=== PATIENT | female | born 1955 | race Caucasian/White ===

== ENCOUNTER 2018-11-27 08:19 | Inpatient (IN) | payer BC ==
[~2018-11-27 08:19] MED LIST: Acetaminophen 325 MG Tab PO SCH; Bisacodyl 5 MG Tab PO PRN; Cyclobenzaprine 10 MG Tab PO PRN; Ketorolac 15 MG/ML SDV IVPUSH PRN; Lactated Ringers 1,000 ML IV SCH; Lidocaine 1%/Sod Bicarbonate in NS 8.4% 1 ML Syringe IDERM PRN; Magnesium Hydroxide 400 MG/5 ML Susp 30 ML Cup PO PRN; Midazolam 1 MG/ML 2 ML SDV ONE; Morphine 2 MG/ML Syringe IVPUSH PRN; Morphine 8 MG, EPINEPHrine 0.3 MG, Cefuroxime 750 MG, Ketorolac 30 MG, Sodium Chloride ... ONE; Naloxone 0.4 MG/ML SDV IVPUSH PRN; Ondansetron 4 MG/2 ML SDV ONE; Pregabalin 25 MG Cap PO SCH; Propofol 200 MG/20 ML SDV ONE; Sennosides 8.6 MG Tab PO PRN; Sodium Chloride 0.9% 10 ML Syringe FLUSH PRN; ceFAZolin 1 GM Vial ONE; fentaNYL 100 MCG/2 ML SDV ONE; oxyCODONE ER 10 MG TAB.ER PO SCH
--- NOTE | 2018-11-27 10:05 | PCM.PREANE ---
Preanesthetic Assessment - Anesthesia/Transfusion/Family Hx Anesthesia History: Prior Anesthesia Without Reaction Family History of Anesthesia Reaction: No Transfusion History: Prior Transfusion Without Reaction - Review of Systems General: No Symptoms, Other (BMI) Pulmonary: No Symptoms Cardiovascular: Other (HTN, EKG SR) Gastrointestinal: No Symptoms Neurological: No Symptoms Other: Reports: None - Physical Assessment NPO Status Date: 11/26/18 NPO Status Time: 19:00 Pulse: 65 O2 Sat by Pulse Oximetry: 96 Respiratory Rate: 16 Blood Pressure: 150/77 Vital Signs: Last Vital Signs Temp 36.6 C 11/27/18 09:05 Pulse 65 11/27/18 09:05 Resp 16 11/27/18 09:05 BP 150/77 H 11/27/18 09:05 Pulse Ox 96 11/27/18 09:05 Height: 1.63 m Weight: 111.13 kg ASA Class: 2 Mental Status: Alert & Oriented x3 Airway Class: Mallampati = 2 Dentition: Reports: Normal Dentition Thyro-Mental Finger Breadths: 3 Mouth Opening Finger Breadths: 3 ROM/Head Extension: Full Lungs: Clear to Auscultation, Normal Respiratory Effort Cardiovascular: Regular Rate, Regular Rhythm - Lab Values: Laboratory Last Values MRSA (PCR) Negative 11/08/18 14:25 - Allergies Allergies/Adverse Reactions: Allergies Allergy/AdvReac Type Severity Reaction Status Date / Time aspirin AdvReac Upset Verified 11/24/18 13:23 Stomach - Blood Blood Available: No Product(s) Available: None - Anesthesia Plan Beta Javier: Metoprolol Med Last Dose Date: 11/27/18 Med Last Dose Time: 06:00 - Acknowledgements Anesthesia Type Planned: Spinal Pt an Appropriate Candidate for the Planned Anesthesia: Yes Alternatives and Risks of Anesthesia Discussed w Pt/Guardian: Yes Pt/Guardian Understands and Agrees with Anesthesia Plan: Yes PreAnesthesia Questionnaire HEENT History: Reports: Cataract, Impaired Vision, Other (See Below) Other HEENT History: wears eyeglasses, states has top/botom dentures. Cardiovascular History: Reports: Hypertension Respiratory History: Reports: None Gastrointestinal History: Reports: None, Other (See Below) Other Gastrointestinal History: c/o "I belch alot." Genitourinary History: Reports: UTI, Recurrent HAND FLESHER History: Reports: None Musculoskeletal History: Reports: Arthritis, Back Pain, Chronic, Fracture, RA Other Musculoskeletal History: Arthritis Neurological History: Reports: None Psychiatric History: Reports: None Endocrine/Metabolic History: Reports: None Hematologic History: Reports: None Immunologic History: Reports: None Oncologic (Cancer) History: Reports: None Dermatologic History: Reports: None - Infectious Disease History Infectious Disease History: Reports: Chicken Pox - Past Surgical History Head Surgeries/Procedures: Reports: None HEENT Surgical History: Reports: Cataract Surgery Cardiovascular Surgical History: Reports: None Respiratory Surgical History: Reports: None GI Surgical History: Reports: Cholecystectomy Female Surgical History: Reports: None Other Female Surgeries/Procedures: Partial Hysterectomy Male Surgical History: Reports: None Endocrine Surgical History: Reports: None Neurological Surgical History: Reports: Lumbar Spine Oncologic Surgical History: Reports: None Dermatological Surgical History: Reports: None - SUBSTANCE USE Smoking Status *Q: Never Smoker Second Hand Smoke Exposure: No Recreational Drug Use History: No - HOME MEDS Home Medications: Home Meds Acetaminophen [Tylenol Extra Strength] 500 mg PO Q4H PRN 11/24/18 [History] Ca Carbonate/Vitamin D3/Vit K [Calcium + D Soft Chewable Tab] 2.5 tab PO DAILY 11/24/18 [History] Cholecalciferol (Vitamin D3) [Vitamin D3] 5,000 unit PO DAILY 11/24/18 [History] Lisinopril 10 mg PO DAILY 11/24/18 [History] Meloxicam 15 mg PO DAILY PRN 11/24/18 [History] Metoprolol Succinate 25 mg PO DAILY 11/24/18 [History] Spironolactone 50 mg PO DAILY 11/24/18 [History] - CURRENT (IN HOUSE) MEDS Current Meds: Current Medications Acetaminophen (Tylenol) 975 mg PO ONETIME [facility] Stop: 11/27/18 18:00 Last Admin: 11/27/18 09:25 Dose: 975 mg Aspirin (Ecotrin) 325 mg PO BID [facility] Bisacodyl (Dulcolax) 5 mg PO DAILY PRN PRN Reason: Constipation Cyclobenzaprine HCl (Flexeril) 10 mg PO TID PRN PRN Reason: Spasms Docusate Sodium (Colace) 100 mg PO BID [facility] Lactated Ringer's (Ringers, Lactated) 1,000 mls @ 125 mls/hr IV ASDIRECTED [facility] Stop: 11/27/18 23:00 Last Admin: 11/27/18 09:20 Dose: 125 mls/hr Cefazolin Sodium/Dextrose 2 gm (/ Premix) 50 mls @ 100 mls/hr IV Q8H [facility] Stop: 11/27/18 23:14 Ketorolac Tromethamine (Toradol) 15 mg IVPUSH Q6H PRN PRN Reason: Pain Lidocaine/Sodium Bicarbonate (Buffered Lidocaine 1% In Ns 8.4%) 0.25 ml IDERM ONETIME PRN PRN Reason: Prior to IV Start Stop: 11/27/18 18:00 Magnesium Hydroxide (Milk Of Magnesia) 30 ml PO BID PRN PRN Reason: Constipation Morphine Sulfate (Morphine) 2 mg IVPUSH Q2H PRN PRN Reason: Breakthrough Pain Naloxone HCl (Narcan) 0.1 mg IVPUSH Q5M PRN PRN Reason: Oversedation Ondansetron HCl (Zofran) 4 mg IVPUSH Q6H PRN PRN Reason: Nausea/Vomiting Oxycodone HCl (Oxycontin) 10 mg PO ONETIME [facility] Stop: 11/27/18 18:00 Last Admin: 11/27/18 09:26 Dose: 10 mg Oxycodone/Acetaminophen (Percocet 325-5 Mg) 1 - 2 tab PO Q4H PRN PRN Reason: Pain Pregabalin (Lyrica) 50 mg PO ONETIME [facility] Stop: 11/27/18 18:00 Last Admin: 11/27/18 09:25 Dose: 50 mg Senna (Senna) 8.6 mg PO BID PRN PRN Reason: Constipation Sodium Chloride (Saline Flush) 10 ml FLUSH ASDIRECTED PRN PRN Reason: Keep Vein Open Stop: 11/27/18 18:00 Discontinued Medications Cefazolin Sodium (Ancef) Confirm Administered Dose 2 gm .ROUTE .STK-MED ONE Stop: 11/27/18 08:19 Morphine Sulfate 8 mg/Epinephrine HCl 0.3 mg/Cefuroxime Sodium 750 mg/Ketorolac Tromethamine 30 mg/Sodium Chloride 27.9 ml 0 mg .XX ONETIME ONE Stop: 11/27/18 07:31 Fentanyl (Sublimaze) Confirm Administered Dose 100 mcg .ROUTE .STK-MED ONE Stop: 11/27/18 08:19 Midazolam HCl (Versed 1 Mg/Ml) Confirm Administered Dose 2 mg .ROUTE .STK-MED ONE Stop: 11/27/18 08:19 Ondansetron HCl (Zofran) Confirm Administered Dose 4 mg .ROUTE .STK-MED ONE Stop: 11/27/18 08:19 Propofol (Diprivan 20 Ml) Confirm Administered Dose 600 mg .ROUTE .STK-MED ONE Stop: 11/27/18 08:19
[2018-11-27] MEDS ORDERED: Ropivacaine 0.5% 5 MG/ML 30 ML SDV ONE (10:11)
[2018-11-27] MEDS ORDERED: EPINEPHrine 1 MG/ML SDV ONE (10:11)
[2018-11-27] MEDS ORDERED: Bupivacaine 0.25% 30 ML SDV ONE (10:58)
[2018-11-27] MEDS ORDERED: ceFAZolin 1 GM Vial ONE (10:58)
[2018-11-27] MEDS ORDERED: Iodine/Sodium Iodide 2% Tincture 30 ML Bottle ONE (10:58)
--- NOTE | 2018-11-27 11:14 | PCM.CONS ---
H&P History of Present Illness - General Date of Service: 11/27/18 Admit Problem/Dx: Admission Diagnosis/Problem Admission Diagnosis/Problem Osteoarthritis of knee Source of Information: Patient, Old Records, Provider, RN, RN Notes Reviewed History Limitations: Reports: No Limitations - History of Present Illness Initial Comments - Free Text/Narative: Iliana Azar is a 63 yo female patient of Dr. Spicer who is post-operative day 0 of right TKA. Hospital medicine was consulted for post-operative medical care of the below listed chronic conditions. At this time she is resting comfortably in bed. Pain is controlled. She denies any chest pain, shortness of breath, palpitations, or vomiting. She is slightly nauseated and will be medicated for this. She carries a history of: HTN, RA, Urolithiasis, Osteopenia, recurrent UTIs, chronic back pain. She was never a smoker. She is a full code. Her primary care provider is Dr. Olivia. Right Knee Pain Score (Numeric/FACES): 0 - Related Data Allergies/Adverse Reactions: Allergies Allergy/AdvReac Type Severity Reaction Status Date / Time aspirin AdvReac Upset Verified 11/24/18 13:23 Stomach Home Medications: Home Meds Acetaminophen [Tylenol Extra Strength] 500 mg PO Q4H PRN 11/24/18 [History] Ca Carbonate/Vitamin D3/Vit K [Calcium + D Soft Chewable Tab] 2.5 tab PO DAILY 11/24/18 [History] Cholecalciferol (Vitamin D3) [Vitamin D3] 5,000 unit PO DAILY 11/24/18 [History] Lisinopril 10 mg PO DAILY 11/24/18 [History] Meloxicam 15 mg PO DAILY PRN 11/24/18 [History] Metoprolol Succinate 25 mg PO DAILY 11/24/18 [History] Spironolactone 50 mg PO DAILY 11/24/18 [History] Past Medical History HEENT History: Reports: Cataract, Impaired Vision, Other (See Below) Other HEENT History: wears eyeglasses, states has top/botom dentures. Cardiovascular History: Reports: Hypertension Respiratory History: Reports: None Gastrointestinal History: Reports: None, Other (See Below) Other Gastrointestinal History: c/o "I belch alot." Genitourinary History: Reports: UTI, Recurrent DIRECTOR LOAN History: Reports: None Musculoskeletal History: Reports: Arthritis, Back Pain, Chronic, Fracture, RA Other Musculoskeletal History: Arthritis Neurological History: Reports: None Psychiatric History: Reports: None Endocrine/Metabolic History: Reports: None Hematologic History: Reports: None Immunologic History: Reports: None Oncologic (Cancer) History: Reports: None Dermatologic History: Reports: None - Infectious Disease History Infectious Disease History: Reports: Chicken Pox - Past Surgical History Head Surgeries/Procedures: Reports: None HEENT Surgical History: Reports: Cataract Surgery Cardiovascular Surgical History: Reports: None Respiratory Surgical History: Reports: None GI Surgical History: Reports: Cholecystectomy Female Surgical History: Reports: None Other Female Surgeries/Procedures: Partial Hysterectomy Male Surgical History: Reports: None Endocrine Surgical History: Reports: None Neurological Surgical History: Reports: Lumbar Spine Oncologic Surgical History: Reports: None Dermatological Surgical History: Reports: None Social & Family History - Family History Family Medical History: Noncontributory - Tobacco Use Smoking Status *Q: Never Smoker Second Hand Smoke Exposure: No - Caffeine Use Caffeine Use: Reports: None - Recreational Drug Use Recreational Drug Use: No H&P Review of Systems - Review of Systems: Review Of Systems: See Below General: Reports: No Symptoms. Denies: Fever, Chills HEENT: Reports: No Symptoms. Denies: Headaches, Sore Throat Pulmonary: Reports: No Symptoms. Denies: Shortness of Breath, Wheezing, Pleuritic Chest Pain, Cough, Sputum Cardiovascular: Reports: No Symptoms. Denies: Chest Pain, Palpitations, Edema Gastrointestinal: Reports: Nausea. Denies: Abdominal Pain, Constipation, Diarrhea, Vomiting Genitourinary: Reports: No Symptoms. Denies: Pain Musculoskeletal: Reports: Leg Pain Skin: Reports: No Symptoms. Denies: Cyanosis Psychiatric: Reports: No Symptoms. Denies: Confusion Neurological: Reports: No Symptoms Hematologic/Lymphatic: Reports: No Symptoms Immunologic: Reports: No Symptoms Exam - Exam Exam: See Below - Vital Signs Vital Signs: Last Vital Signs Temp 97.9 F 11/27/18 09:05 Pulse 65 11/27/18 10:05 Resp 16 11/27/18 10:05 BP 150/77 H 11/27/18 10:05 Pulse Ox 96 11/27/18 10:05 Weight: 245 lb - Exam Quality Assessment: DVT Prophylaxis General: Alert, Oriented, Cooperative. No: Mild Distress HEENT: Conjunctiva Clear, EACs Clear, EOMI, Hearing Intact, Mucosa Moist & [place] , Normal Nasal Septum, Posterior Pharynx Clear, PERRLA Neck: Supple, Trachea Midline Lungs: Clear to Auscultation, Normal Respiratory Effort Cardiovascular: Regular Rate, Regular Rhythm GI/Abdominal Exam: Normal Bowel Sounds, Soft, Non-Tender, No Organomegaly, No Distention (Female) Exam: Deferred Rectal (Female) Exam: Deferred Back Exam: Normal Inspection, Full Range of Motion Extremities: No Pedal Edema, Normal Capillary Refill, Leg Pain, Limited Range of Motion, Other (Bandage in place on right leg. Bandage is dry and intact. Cooling pack in place. ) Peripheral Pulses: 2+: Radial (L), Radial (R), Dorsalis Pedis (L), Dorsalis Pedis (R) Skin: Warm, Dry, Intact Neurological: Cranial Nerves Intact (grossly ) Neuro Extensive - Mental Status: Alert, Oriented x3, Normal Mood/Affect Consult PN Assessment/Plan POD#: 0 Procedures: Procedures ASSAY OF TROPONIN QUANT (12/20/15) ASSAY THYROID STIM HORMONE (03/12/17) BL SMEAR W/DIFF WBC COUNT (04/24/18) C-REACTIVE PROTEIN (04/24/18) CHEST X-RAY 1 VIEW FRONTAL (12/20/15) COMPLETE CBC AUTOMATED (04/24/18) COMPLETE CBC W/AUTO DIFF WBC (03/12/17) COMPREHEN METABOLIC PANEL (04/24/18) CT ABD & PELV W/CONTRAST (04/24/18) CT ANGIOGRAPHY CHEST (03/26/15) ELECTROCARDIOGRAM TRACING (12/20/15) EMERGENCY DEPT VISIT (04/24/18) EMERGENCY DEPT VISIT (12/20/15) EMERGENCY DEPT VISIT (03/24/15) FIBRIN DEGRADATION QUANT (03/24/15) HYDRATE IV INFUSION ADD-ON (04/24/18) LIPID PANEL (03/12/17) MANUAL THERAPY 1/> REGIONS (06/03/14) METABOLIC PANEL TOTAL CA (06/02/17) PT EVALUATION (05/16/14) ROUTINE VENIPUNCTURE (04/24/18) THER/PROPH/DIAG INJ IV PUSH (04/24/18) THER/PROPH/DIAG INJ SC/IM (03/24/15) THERAPEUTIC EXERCISES (06/03/14) ULTRASOUND BREAST LIMITED (04/04/17) ULTRASOUND THERAPY (05/16/14) URINALYSIS AUTO W/SCOPE (04/24/18) URINE BACTERIA CULTURE (04/24/18) URINE CULTURE/COLONY COUNT (04/24/18) (1) S/P total knee arthroplasty SNOMED Code(s): 5579840010080, 799182450, 2991395379622 Code(s): Z96.659 - PRESENCE OF UNSPECIFIED ARTIFICIAL KNEE JOINT Priority: High Current Visit: Yes Qualifiers: Laterality: right Qualified Code(s): Z96.651 - Presence of right artificial knee joint (2) Osteoarthritis SNOMED Code(s): 203182389 Code(s): M19.90 - UNSPECIFIED OSTEOARTHRITIS, UNSPECIFIED SITE Priority: High Current Visit: Yes Qualifiers: Osteoarthritis location: knee Osteoarthritis type: primary Laterality: right Qualified Code(s): M17.11 - Unilateral primary osteoarthritis, right knee (3) HTN (hypertension) SNOMED Code(s): 16296105 Code(s): I10 - ESSENTIAL (PRIMARY) HYPERTENSION Priority: Low Current Visit: No Qualifiers: Hypertension type: unspecified Qualified Code(s): I10 - Essential (primary ) hypertension (4) Rheumatoid arthritis SNOMED Code(s): 96369781 Code(s): M06.9 - RHEUMATOID ARTHRITIS, UNSPECIFIED Priority: Low Current Visit: No Qualifiers: Rheumatoid arthritis location: unspecified site Rheumatoid factor presence : unspecified presence Qualified Code(s): M06.9 - Rheumatoid arthritis, unspecified (5) Urolithiasis SNOMED Code(s): 25594343, 469339618 Code(s): N20.9 - URINARY CALCULUS, UNSPECIFIED Priority: Low Current Visit: No Qualifiers: Urinary calculus location: other lower urinary tract location Qualified Code(s): N21.8 - Other lower urinary tract calculus (6) Osteopenia SNOMED Code(s): 824671287 Code(s): M85.80 - OTH DISRD OF BONE DENSITY AND STRUCTURE, UNSPECIFIED SITE Priority: Low Current Visit: No Qualifiers: Osteopenia location: unspecified Qualified Code(s): M85.80 - Other specified disorders of bone density and structure, unspecified site (7) Recurrent UTI SNOMED Code(s): 979388233 Code(s): N39.0 - URINARY TRACT INFECTION, SITE NOT SPECIFIED Priority: Low Current Visit: No (8) Chronic back pain SNOMED Code(s): 504361188 Code(s): M54.9 - DORSALGIA, UNSPECIFIED; G89.29 - OTHER CHRONIC PAIN Priority: Low Current Visit: No Qualifiers: Back pain location: back pain in unspecified location Back pain laterality : unspecified Qualified Code(s): M54.9 - Dorsalgia, unspecified; G89.29 - Other chronic pain Problem List Initiated/Reviewed/Updated: Yes Plan: I/P: Acute: S/P right total knee arthroplasty - post-operative day 0 -DVT prophylaxis and pain management per primary care team -PT/OT -IS/RT -Monitor oxygen saturation -Titrate oxygen as needed -Home medications reviewed -Vital signs stable -Monitor labs -Pre-operative Hgb was 12.8 -Pre-operative GFR was 75 Osteoarthritis of right knee -Pain management per primary care team Chronic: HTN RA Urolithiasis Osteopenia recurrent UTIs chronic back pain Plan: CM for discharge planning GI prophylaxis Home medications as indicated Other orders as listed above Routine AM labs She is a full code. Her PCP is Dr. Olivia. Thank you for allowing us to participate in the care of this patient!! Requesting Provider: Dr. Spicer Date Consult Requested: 11/27/18 Patient History Reviewed: Yes Admission H&P Reviewed: Yes Time Spent (in minutes): 35
[2018-11-27] MEDS ORDERED: ePHEDrine/Normal Saline 25 MG/5 ML Syringe ONE (12:26)
[2018-11-27] MEDS ORDERED: Propofol 200 MG/20 ML SDV ONE (12:49)
[2018-11-27] MEDS: Vancomycin 1 GM SDV ONE ×2 (13:03→13:05)
[2018-11-27] MEDS ORDERED: Lactated Ringers 1,000 ML ONE (13:39)
[2018-11-27] MEDS ORDERED: fentaNYL 100 MCG/2 ML SDV IVPUSH PRN (14:06)
--- NOTE | 2018-11-27 14:06 | PCM.POSTAN ---
POST ANESTHESIA ASSESSMENT - MENTAL STATUS Mental Status: Alert, Oriented - VITAL SIGNS Pulse Rate: 60 SaO2: 96 Resp Rate: 13 Blood Pressure: 123/64 Temperature: 36.8 C - RESPIRATORY Respiratory Status: Respiratory Rate WNL, Airway Patent, O2 Saturation Stable, Supplemental Oxygen - CARDIOVASCULAR CV Status: Pulse Rate WNL, Blood Pressure Stable - GASTROINTESTINAL GI Status: No Symptoms - PAIN Pain Score: 0 - POST OP HYDRATION Hydration Status: Adequate & Stable
--- NOTE | 2018-11-27 14:22 | PCM.SN ---
- Free Text/Narrative Note: Right selective femoral nerve block at the adductor canal for post-procedure pain control under US guidance requested by Dr. Spicer. Time Out: 140 Start:1410 End: 1413 Chart reviewed. Consent signed. Questions answered. Appropriate monitors applied. Time out performed. Right mid-shaft femur identified with ultrasound, scanning medially of femur, the femoral artery in the adductor canal visualized , and the femoral nerve located laterally to the artery. The skin was prepped lateral to the ultrasound probe with chlorahexadine times two. The 21ga 4 insulated block needle was inserted under direct ultrasound guidance into the adductor canal. 25mL of 0.5% ropivacaine with 1:200,000 epinephrine was injected circumferentially around the nerve with intermittent negative aspiration noted. Patient tolerated the procedure well. Sterile technique noted along with sterile gloves, mask, and sterile probe cover. See picture on progress note and vital signs on nurses notes. Block completed in PACU. Yuliet Arana CRNA
--- NOTE | 2018-11-27 15:10 | CR ---
Right knee: AP and lateral views of the right knee were obtained. Comparison: No prior exam. Knee prosthesis is seen. Components appear aligned. Soft tissue air is noted from the surgical procedure. Underlying bony structures are intact. Impression: 1. Satisfactory appearance of recently placed right knee prosthesis. Diagnostic code #2
[2018-11-27] MEDS: Ondansetron 4 MG/2 ML SDV IVPUSH PRN (15:42)
[2018-11-27] MEDS ORDERED: Scopolamine 1.5 MG Transdermal Patch TRDERM SCH (16:00)
--- NOTE | 2018-11-27 16:50 | PCM.OPNOTE ---
- General Post-Op/Procedure Note Date of Surgery/Procedure: 11/27/18 Operative Procedure(s): right total knee arthroplasty Pre Op Diagnosis: right knee osteoarthrosis Post-Op Diagnosis: Same Anesthesia Technique: Local, MAC, Spinal Primary Surgeon: Sean Spicer Anesthesia Provider: Noris Evans [place] Mixer Operator: Phyllis Casillas [employer] Mixer Operator: Opal Frye EBL in mLs: 50 Complications: None Condition: Good Free Text/Narrative:: Intake & Output 11/27/18 11/27/18 11/27/18 06:59 14:59 22:59 Intake Total 250 Balance 250 size 5/5 9mm 32x10 cemented patella
[2018-11-27] MEDS ORDERED: Haloperidol Lactate 5 MG/ML SDV IVPUSH ONE (18:00)
[2018-11-27] MEDS ORDERED: Sodium Chloride 0.9% 500 ML IV ONE (18:01)
[2018-11-27] MEDS: ceFAZolin 2 GM in Premix Bag 1 BAG IV SCH (18:19)
[2018-11-27] MEDS: Docusate Sodium 100 MG Cap PO SCH (20:01)
[2018-11-27] MEDS: Acetaminophen/oxyCODONE 325-5 MG Tab PO PRN (20:01)
[2018-11-28] MEDS: Acetaminophen/oxyCODONE 325-5 MG Tab PO PRN ×3 (01:59→20:59)
[2018-11-28] MEDS: ceFAZolin 2 GM in Premix Bag 1 BAG IV SCH ×2 (02:01→12:12)
--- NOTE | 2018-11-28 06:33 | PCM.CONSN ---
- General Info Date of Service: 11/28/18 Admission Dx/Problem (Free Text): Admission Diagnosis/Problem Admission Diagnosis/Problem Osteoarthritis of knee Functional Status: Reports: Pain Controlled, Tolerating Diet, Ambulating, Urinating, Incentive Spirometry. Denies: New Symptoms - Review of Systems General: Reports: No Symptoms. Denies: Fever, Chills HEENT: Reports: No Symptoms. Denies: Headaches, Sore Throat Pulmonary: Reports: No Symptoms. Denies: Shortness of Breath, Cough, Sputum Cardiovascular: Reports: No Symptoms. Denies: Chest Pain, Palpitations, Dyspnea on Exertion, Edema Gastrointestinal: Reports: Decreased Appetite, Nausea, Vomiting. Denies: Abdominal Pain, Constipation, Diarrhea Genitourinary: Reports: No Symptoms. Denies: Pain Musculoskeletal: Reports: Leg Pain Skin: Reports: No Symptoms. Denies: Cyanosis Neurological: Reports: No Symptoms. Denies: Confusion Psychiatric: Reports: No Symptoms - Patient Data Vitals - Most Recent: Last Vital Signs Temp 97.6 F 11/28/18 04:00 Pulse 58 L 11/28/18 04:00 Resp 20 11/28/18 04:00 BP 135/81 11/28/18 04:00 Pulse Ox 96 11/28/18 04:00 Weight - Most Recent: 251 lb I&O - Last 24 Hours: Intake & Output 11/27/18 11/27/18 11/28/18 14:59 22:59 06:59 Intake Total 250 1000 Output Total 200 Balance 250 800 Lab Results Last 24 Hours: Laboratory Results - last 24 hr 11/28/18 11/28/18 Range/Units 04:33 04:33 WBC 9.22 (3.98-10.04) K/mm3 RBC 3.88 L (3.98-5.22) M/mm3 Hgb 11.6 (11.2-15.7) gm/L Hct 35.4 (34.1-44.9) % MCV 91.2 (79.4-94.8) fl MCH 29.9 (25.6-32.2) pg MCHC 32.8 (32.2-35.5) g/dl RDW Std Deviation 42.7 (36.4-46.3) fL Plt Count 173 L (182-369) K/mm3 MPV 11.2 (9.4-12.3) fl Sodium 136 (136-145) mEq/L Potassium 4.9 (3.5-5.1) mEq/L Chloride 101 (98-107) mEq/L Carbon Dioxide 27 (21-32) mEq/L Anion Gap 12.9 (5-15) BUN 32 H (7-18) mg/dL Creatinine 0.8 (0.55-1.02) mg/dL Est Cr Clr Drug Dosing 63.77 mL/min Estimated GFR (MDRD) > 60 (>60) mL/min BUN/Creatinine Ratio 40.0 H (14-18) Glucose 111 (80-115) mg/dL Calcium 8.9 (8.5-10.1) mg/dL Total Bilirubin 1.1 H (0.2-1.0) mg/dL AST 167 H (15-37) U/L ALT 117 H (14-59) U/L Alkaline Phosphatase 128 H (46-116) U/L Total Protein 6.0 L (6.4-8.2) g/dl Albumin 3.1 L (3.4-5.0) g/dl Globulin 2.9 gm/dL Albumin/Globulin Ratio 1.1 (1-2) Med Orders - Current: Current Medications Aspirin (Ecotrin) 325 mg PO BID [facility] Bisacodyl (Dulcolax) 5 mg PO DAILY PRN PRN Reason: Constipation Calcium Carbonate (Calcium Carbonate/Vitamin D 600 Mg-200 Unit) 2 tab PO DAILY [facility] Cholecalciferol (Vitamin D3) 5,000 unit PO DAILY [facility] Cyclobenzaprine HCl (Flexeril) 10 mg PO TID PRN PRN Reason: Spasms Docusate Sodium (Colace) 100 mg PO BID [facility] Last Admin: 11/27/18 20:01 Dose: 100 mg Cefazolin Sodium/Dextrose 2 gm (/ Premix) 50 mls @ 100 mls/hr IV Q8H [facility] Stop: 11/28/18 11:29 Last Admin: 11/28/18 02:01 Dose: 100 mls/hr Ketorolac Tromethamine (Toradol) 15 mg IVPUSH Q6H PRN PRN Reason: Pain Magnesium Hydroxide (Milk Of Magnesia) 30 ml PO BID PRN PRN Reason: Constipation Metoprolol Succinate (Toprol Xl) 25 mg PO DAILY [facility] Miscellaneous Information (Remove Patch) 1 ea TRDERM Q72H [facility] Morphine Sulfate (Morphine) 2 mg IVPUSH Q2H PRN PRN Reason: Breakthrough Pain Naloxone HCl (Narcan) 0.1 mg IVPUSH Q5M PRN PRN Reason: Oversedation Ondansetron HCl (Zofran) 4 mg IVPUSH Q6H PRN PRN Reason: Nausea/Vomiting Last Admin: 11/27/18 15:42 Dose: 4 mg Oxycodone/Acetaminophen (Percocet 325-5 Mg) 1 - 2 tab PO Q4H PRN PRN Reason: Pain Last Admin: 11/28/18 06:05 Dose: 2 tab Scopolamine (Transderm-Scop) 1.5 mg TRDERM Q72H [facility] Last Admin: 11/27/18 15:42 Dose: 1.5 mg Senna (Senna) 8.6 mg PO BID PRN PRN Reason: Constipation Discontinued Medications Acetaminophen (Tylenol) 975 mg PO ONETIME [facility] Stop: 11/27/18 18:00 Last Admin: 11/27/18 09:25 Dose: 975 mg Bupivacaine HCl (Marcaine 0.25%) Confirm Administered Dose 30 ml .ROUTE .STK- MED ONE Stop: 11/27/18 10:59 Last Admin: 11/27/18 13:03 Dose: 30 ml Cefazolin Sodium (Ancef) Confirm Administered Dose 2 gm .ROUTE .STK-MED ONE Stop: 11/27/18 08:19 Last Admin: 11/27/18 13:01 Dose: 2 gm Cefazolin Sodium (Ancef) Confirm Administered Dose 2 gm .ROUTE .STK-MED ONE Stop: 11/27/18 10:59 Morphine Sulfate 8 mg/Epinephrine HCl 0.3 mg/Cefuroxime Sodium 750 mg/Ketorolac Tromethamine 30 mg/Sodium Chloride 27.9 ml 0 mg .XX ONETIME ONE Stop: 11/27/18 07:31 Last Admin: 11/27/18 13:02 Dose: 788.3 mg Ephedrine Sulfate (Ephedrine In Ns) Confirm Administered Dose 25 mg .ROUTE .STK- MED ONE Stop: 11/27/18 12:27 Epinephrine HCl (Adrenalin) Confirm Administered Dose 1 mg .ROUTE .STK-MED ONE Stop: 11/27/18 10:12 Fentanyl (Sublimaze) Confirm Administered Dose 100 mcg .ROUTE .STK-MED ONE Stop: 11/27/18 08:19 Fentanyl (Sublimaze) 50 mcg IVPUSH Q5M PRN PRN Reason: pain Stop: 11/27/18 18:00 Haloperidol Lactate (Haldol) 1 mg IVPUSH ONETIME ONE Stop: 11/27/18 18:01 Last Admin: 11/27/18 18:16 Dose: 1 mg Lactated Ringer's (Ringers, Lactated) 1,000 mls @ 125 mls/hr IV ASDIRECTED [facility] Stop: 11/27/18 23:00 Last Admin: 11/27/18 09:20 Dose: 125 mls/hr Lactated Ringer's (Ringers, Lactated) Confirm Administered Dose 1,000 mls @ as directed .ROUTE .STK-MED ONE Stop: 11/27/18 13:40 Sodium Chloride (Normal Saline) 500 mls @ 999 mls/hr IV .BOLUS ONE Stop: 11/27/18 18:31 Last Admin: 11/27/18 18:19 Dose: 999 mls/hr Iodine (Iodine 2% Mild Tincture) Confirm Administered Dose 30 ml .ROUTE .STK- MED ONE Stop: 11/27/18 10:59 Last Admin: 11/27/18 12:58 Dose: 18 ml Lidocaine/Sodium Bicarbonate (Buffered Lidocaine 1% In Ns 8.4%) 0.25 ml IDERM ONETIME PRN PRN Reason: Prior to IV Start Stop: 11/27/18 18:00 Midazolam HCl (Versed 1 Mg/Ml) Confirm Administered Dose 2 mg .ROUTE .STK-MED ONE Stop: 11/27/18 08:19 Ondansetron HCl (Zofran) Confirm Administered Dose 4 mg .ROUTE .STK-MED ONE Stop: 11/27/18 08:19 Oxycodone HCl (Oxycontin) 10 mg PO ONETIME [facility] Stop: 11/27/18 18:00 Last Admin: 11/27/18 09:26 Dose: 10 mg Pregabalin (Lyrica) 50 mg PO ONETIME [facility] Stop: 11/27/18 18:00 Last Admin: 11/27/18 09:25 Dose: 50 mg Propofol (Diprivan 20 Ml) Confirm Administered Dose 600 mg .ROUTE .STK-MED ONE Stop: 11/27/18 08:19 Propofol (Diprivan 20 Ml) Confirm Administered Dose 200 mg .ROUTE .STK-MED ONE Stop: 11/27/18 12:50 Ropivacaine (Naropin 0.5%) Confirm Administered Dose 30 ml .ROUTE .STK-MED ONE Stop: 11/27/18 10:12 Sodium Chloride (Saline Flush) 10 ml FLUSH ASDIRECTED PRN PRN Reason: Keep Vein Open Stop: 11/27/18 18:00 Tranexamic Acid (Cyklokapron) Confirm Administered Dose 1,000 mg .ROUTE .STK- MED ONE Stop: 11/27/18 10:59 Last Admin: 11/27/18 13:17 Dose: 1,000 mg Vancomycin HCl (Vancomycin) Confirm Administered Dose 1 gm .ROUTE .STK-MED ONE Stop: 11/27/18 10:59 Last Admin: 11/27/18 13:05 Dose: 1 gm - Exam Quality Assessment: DVT Prophylaxis General: Alert, Oriented, Cooperative, No Acute Distress HEENT: Pupils Equal, Pupils Reactive, EOMI, Mucous Membr. Moist/[place] Neck: Supple, Trachea Midline, No JVD Lungs: Clear to Auscultation, Normal Respiratory Effort Cardiovascular: Regular Rate, Regular Rhythm GI/Abdominal Exam: Normal Bowel Sounds, Soft, Non-Tender, No Organomegaly, No Distention (Female) Exam: Deferred Back Exam: Normal Inspection, Full Range of Motion Extremities: No Pedal Edema, Normal Capillary Refill, Leg Pain, Limited Range of Motion, Other (Bandage in place on right leg. Cooling pack in place. ) Peripheral Pulses: 2+: Radial (L), Radial (R), Dorsalis Pedis (L), Dorsalis Pedis (R) Skin: Warm, Dry, Intact Wound/Incisions: Dressing Dry and Intact, No Drainage Neurological: No New Focal Deficit Psy/Mental Status: Alert, Normal Affect, Normal Mood Consult PN Assessment/Plan POD#: 1 Procedures: Procedures ASSAY OF TROPONIN QUANT (12/20/15) ASSAY THYROID STIM HORMONE (03/12/17) BL SMEAR W/DIFF WBC COUNT (04/24/18) C-REACTIVE PROTEIN (04/24/18) CHEST X-RAY 1 VIEW FRONTAL (12/20/15) COMPLETE CBC AUTOMATED (04/24/18) COMPLETE CBC W/AUTO DIFF WBC (03/12/17) COMPREHEN METABOLIC PANEL (04/24/18) CT ABD & PELV W/CONTRAST (04/24/18) CT ANGIOGRAPHY CHEST (03/26/15) ELECTROCARDIOGRAM TRACING (12/20/15) EMERGENCY DEPT VISIT (04/24/18) EMERGENCY DEPT VISIT (12/20/15) EMERGENCY DEPT VISIT (03/24/15) FIBRIN DEGRADATION QUANT (03/24/15) HYDRATE IV INFUSION ADD-ON (04/24/18) LIPID PANEL (03/12/17) MANUAL THERAPY 1/> REGIONS (06/03/14) METABOLIC PANEL TOTAL CA (06/02/17) PT EVALUATION (05/16/14) ROUTINE VENIPUNCTURE (04/24/18) THER/PROPH/DIAG INJ IV PUSH (04/24/18) THER/PROPH/DIAG INJ SC/IM (03/24/15) THERAPEUTIC EXERCISES (06/03/14) ULTRASOUND BREAST LIMITED (04/04/17) ULTRASOUND THERAPY (05/16/14) URINALYSIS AUTO W/SCOPE (04/24/18) URINE BACTERIA CULTURE (04/24/18) URINE CULTURE/COLONY COUNT (04/24/18) (1) S/P total knee arthroplasty SNOMED Code(s): 5787236992275, 706245511, 4724636449603 Code(s): Z96.659 - PRESENCE OF UNSPECIFIED ARTIFICIAL KNEE JOINT Priority: High Current Visit: Yes Qualifiers: Laterality: right Qualified Code(s): Z96.651 - Presence of right artificial knee joint (2) Osteoarthritis SNOMED Code(s): 765742309 Code(s): M19.90 - UNSPECIFIED OSTEOARTHRITIS, UNSPECIFIED SITE Priority: High Current Visit: Yes Qualifiers: Osteoarthritis location: knee Osteoarthritis type: primary Laterality: right Qualified Code(s): M17.11 - Unilateral primary osteoarthritis, right knee (3) HTN (hypertension) SNOMED Code(s): 46216670 Code(s): I10 - ESSENTIAL (PRIMARY) HYPERTENSION Priority: Low Current Visit: No Qualifiers: Hypertension type: unspecified Qualified Code(s): I10 - Essential (primary ) hypertension (4) Rheumatoid arthritis SNOMED Code(s): 06431580 Code(s): M06.9 - RHEUMATOID ARTHRITIS, UNSPECIFIED Priority: Low Current Visit: No Qualifiers: Rheumatoid arthritis location: unspecified site Rheumatoid factor presence : unspecified presence Qualified Code(s): M06.9 - Rheumatoid arthritis, unspecified (5) Urolithiasis SNOMED Code(s): 56730488, 628745290 Code(s): N20.9 - URINARY CALCULUS, UNSPECIFIED Priority: Low Current Visit: No Qualifiers: Urinary calculus location: other lower urinary tract location Qualified Code(s): N21.8 - Other lower urinary tract calculus (6) Osteopenia SNOMED Code(s): 124001859 Code(s): M85.80 - OTH DISRD OF BONE DENSITY AND STRUCTURE, UNSPECIFIED SITE Priority: Low Current Visit: No Qualifiers: Osteopenia location: unspecified Qualified Code(s): M85.80 - Other specified disorders of bone density and structure, unspecified site (7) Recurrent UTI SNOMED Code(s): 808764477 Code(s): N39.0 - URINARY TRACT INFECTION, SITE NOT SPECIFIED Priority: Low Current Visit: No (8) Chronic back pain SNOMED Code(s): 049187819 Code(s): M54.9 - DORSALGIA, UNSPECIFIED; G89.29 - OTHER CHRONIC PAIN Priority: Low Current Visit: No Qualifiers: Back pain location: back pain in unspecified location Back pain laterality : unspecified Qualified Code(s): M54.9 - Dorsalgia, unspecified; G89.29 - Other chronic pain (9) Post-operative nausea and vomiting SNOMED Code(s): 7401272 Code(s): R11.2 - NAUSEA WITH VOMITING, UNSPECIFIED; Z98.890 - OTHER SPECIFIED POSTPROCEDURAL STATES Priority: High Current Visit: Yes Problem List Initiated/Reviewed/Updated: Yes My Orders Last 24 Hours: My Active Orders 11/27/18 16:00 Scopolamine [Transderm-Scop] 1.5 mg TRDERM Q72H 11/28/18 09:00 Calcium Carbonate/Vitamin D3 [Calcium Carbonate/Vitamin D 600 MG-200 Unit] 2 tab PO DAILY Cholecalciferol (Vitamin D3) [Vitamin D3] 5,000 unit PO DAILY Metoprolol Succinate [Toprol XL] 25 mg PO DAILY Plan: I/P: Acute: S/P right total knee arthroplasty - post-operative day 1 -DVT prophylaxis and pain management per primary care team -PT/OT -IS/RT -Monitor oxygen saturation -Titrate oxygen as needed -Home medications reviewed -Vital signs stable -Monitor labs -Pre-operative Hgb was 12.8; Now 11.6 -Pre-operative GFR was 75; Now >60 Osteoarthritis of right knee -Pain management per primary care team Post-operative nausea and vomiting -Intractable nausea and vomiting after surgery -IV fluids and Haldol given last night -Has been unable to eat today -Nauseated with movement today -IV fluids ordered today -Antiemetic medications as ordered -Will likely need to spend night for control Chronic: HTN RA Urolithiasis Osteopenia recurrent UTIs chronic back pain Plan: CM for discharge planning GI prophylaxis Home medications as indicated Other orders as listed above Routine AM labs She is a full code. Her PCP is Dr. Olivia. Iliana remains very nauseated. It is worse with movement. Discussed concerns with primary team. We will keep her tonight to work on symptoms. IV fluids and more antiemetics ordered. Thank you for allowing us to participate in the care of this patient!!
--- NOTE | 2018-11-28 07:53 | PCM48HPAN ---
Post Anesthesia Note - EVALUATION WITHIN 48HRS OF ANESTHETIC Vital Signs in Normal Range: Yes Patient Participated in Evaluation: Yes Respiratory Function Stable: Yes Airway Patent: Yes Cardiovascular Function Stable: Yes Hydration Status Stable: Yes Pain Control Satisfactory: Yes Nausea and Vomiting Control Satisfactory: Yes Mental Status Recovered: Yes - COMMENTS/OBSERVATIONS Free Text/Narrative:: Patient c/o some nausea yesterday and again this am. Patient attributes nausea to having an empty stomach, and has ordered a light breakfast this am. Patient overall satisfied with anesthesia services and has no c/o at this time.
--- NOTE | 2018-11-28 08:12 | PCM.SURGPN ---
- General Info Date of Service: 11/28/18 POD#: 1 Functional Status: Reports: Pain Controlled, Tolerating Diet, Ambulating, Urinating, Incentive Spirometry, Other (The pt states she is "tired, but ok".) - Patient Data Vitals - Most Recent: Last Vital Signs Temp 98.2 F 11/28/18 07:44 Pulse 57 L 11/28/18 07:44 Resp 16 11/28/18 07:44 BP 130/95 H 11/28/18 07:44 Pulse Ox 95 11/28/18 07:44 Weight - Most Recent: 251 lb I&O - Last 24 Hours: Intake & Output 11/27/18 11/28/18 11/28/18 22:59 06:59 14:59 Intake Total 1000 Output Total 200 Balance 800 Lab Results Last 24 Hrs: Laboratory Results - last 24 hr 11/28/18 11/28/18 Range/Units 04:33 04:33 WBC 9.22 (3.98-10.04) K/mm3 RBC 3.88 L (3.98-5.22) M/mm3 Hgb 11.6 (11.2-15.7) gm/L Hct 35.4 (34.1-44.9) % MCV 91.2 (79.4-94.8) fl MCH 29.9 (25.6-32.2) pg MCHC 32.8 (32.2-35.5) g/dl RDW Std Deviation 42.7 (36.4-46.3) fL Plt Count 173 L (182-369) K/mm3 MPV 11.2 (9.4-12.3) fl Sodium 136 (136-145) mEq/L Potassium 4.9 (3.5-5.1) mEq/L Chloride 101 (98-107) mEq/L Carbon Dioxide 27 (21-32) mEq/L Anion Gap 12.9 (5-15) BUN 32 H (7-18) mg/dL Creatinine 0.8 (0.55-1.02) mg/dL Est Cr Clr Drug Dosing 63.77 mL/min Estimated GFR (MDRD) > 60 (>60) mL/min BUN/Creatinine Ratio 40.0 H (14-18) Glucose 111 (80-115) mg/dL Calcium 8.9 (8.5-10.1) mg/dL Total Bilirubin 1.1 H (0.2-1.0) mg/dL AST 167 H (15-37) U/L ALT 117 H (14-59) U/L Alkaline Phosphatase 128 H (46-116) U/L Total Protein 6.0 L (6.4-8.2) g/dl Albumin 3.1 L (3.4-5.0) g/dl Globulin 2.9 gm/dL Albumin/Globulin Ratio 1.1 (1-2) Med Orders - Current: Current Medications Aspirin (Ecotrin) 325 mg PO BID [facility] Bisacodyl (Dulcolax) 5 mg PO DAILY PRN PRN Reason: Constipation Calcium Carbonate (Calcium Carbonate/Vitamin D 600 Mg-200 Unit) 2 tab PO DAILY [facility] Cholecalciferol (Vitamin D3) 5,000 unit PO DAILY [facility] Cyclobenzaprine HCl (Flexeril) 10 mg PO TID PRN PRN Reason: Spasms Docusate Sodium (Colace) 100 mg PO BID [facility] Last Admin: 11/27/18 20:01 Dose: 100 mg Cefazolin Sodium/Dextrose 2 gm (/ Premix) 50 mls @ 100 mls/hr IV Q8H [facility] Stop: 11/28/18 11:29 Last Admin: 11/28/18 02:01 Dose: 100 mls/hr Ketorolac Tromethamine (Toradol) 15 mg IVPUSH Q6H PRN PRN Reason: Pain Magnesium Hydroxide (Milk Of Magnesia) 30 ml PO BID PRN PRN Reason: Constipation Metoprolol Succinate (Toprol Xl) 25 mg PO DAILY [facility] Miscellaneous Information (Remove Patch) 1 ea TRDERM Q72H [facility] Morphine Sulfate (Morphine) 2 mg IVPUSH Q2H PRN PRN Reason: Breakthrough Pain Naloxone HCl (Narcan) 0.1 mg IVPUSH Q5M PRN PRN Reason: Oversedation Ondansetron HCl (Zofran) 4 mg IVPUSH Q6H PRN PRN Reason: Nausea/Vomiting Last Admin: 11/27/18 15:42 Dose: 4 mg Oxycodone/Acetaminophen (Percocet 325-5 Mg) 1 - 2 tab PO Q4H PRN PRN Reason: Pain Last Admin: 11/28/18 06:05 Dose: 2 tab Scopolamine (Transderm-Scop) 1.5 mg TRDERM Q72H [facility] Last Admin: 11/27/18 15:42 Dose: 1.5 mg Senna (Senna) 8.6 mg PO BID PRN PRN Reason: Constipation Discontinued Medications Acetaminophen (Tylenol) 975 mg PO ONETIME [facility] Stop: 11/27/18 18:00 Last Admin: 11/27/18 09:25 Dose: 975 mg Bupivacaine HCl (Marcaine 0.25%) Confirm Administered Dose 30 ml .ROUTE .STK- MED ONE Stop: 11/27/18 10:59 Last Admin: 11/27/18 13:03 Dose: 30 ml Cefazolin Sodium (Ancef) Confirm Administered Dose 2 gm .ROUTE .STK-MED ONE Stop: 11/27/18 08:19 Last Admin: 11/27/18 13:01 Dose: 2 gm Cefazolin Sodium (Ancef) Confirm Administered Dose 2 gm .ROUTE .STK-MED ONE Stop: 11/27/18 10:59 Morphine Sulfate 8 mg/Epinephrine HCl 0.3 mg/Cefuroxime Sodium 750 mg/Ketorolac Tromethamine 30 mg/Sodium Chloride 27.9 ml 0 mg .XX ONETIME ONE Stop: 11/27/18 07:31 Last Admin: 11/27/18 13:02 Dose: 788.3 mg Ephedrine Sulfate (Ephedrine In Ns) Confirm Administered Dose 25 mg .ROUTE .STK- MED ONE Stop: 11/27/18 12:27 Epinephrine HCl (Adrenalin) Confirm Administered Dose 1 mg .ROUTE .STK-MED ONE Stop: 11/27/18 10:12 Fentanyl (Sublimaze) Confirm Administered Dose 100 mcg .ROUTE .STK-MED ONE Stop: 11/27/18 08:19 Fentanyl (Sublimaze) 50 mcg IVPUSH Q5M PRN PRN Reason: pain Stop: 11/27/18 18:00 Haloperidol Lactate (Haldol) 1 mg IVPUSH ONETIME ONE Stop: 11/27/18 18:01 Last Admin: 11/27/18 18:16 Dose: 1 mg Lactated Ringer's (Ringers, Lactated) 1,000 mls @ 125 mls/hr IV ASDIRECTED [facility] Stop: 11/27/18 23:00 Last Admin: 11/27/18 09:20 Dose: 125 mls/hr Lactated Ringer's (Ringers, Lactated) Confirm Administered Dose 1,000 mls @ as directed .ROUTE .STK-MED ONE Stop: 11/27/18 13:40 Sodium Chloride (Normal Saline) 500 mls @ 999 mls/hr IV .BOLUS ONE Stop: 11/27/18 18:31 Last Admin: 11/27/18 18:19 Dose: 999 mls/hr Iodine (Iodine 2% Mild Tincture) Confirm Administered Dose 30 ml .ROUTE .STK- MED ONE Stop: 11/27/18 10:59 Last Admin: 11/27/18 12:58 Dose: 18 ml Lidocaine/Sodium Bicarbonate (Buffered Lidocaine 1% In Ns 8.4%) 0.25 ml IDERM ONETIME PRN PRN Reason: Prior to IV Start Stop: 11/27/18 18:00 Midazolam HCl (Versed 1 Mg/Ml) Confirm Administered Dose 2 mg .ROUTE .STK-MED ONE Stop: 11/27/18 08:19 Ondansetron HCl (Zofran) Confirm Administered Dose 4 mg .ROUTE .STK-MED ONE Stop: 11/27/18 08:19 Oxycodone HCl (Oxycontin) 10 mg PO ONETIME [facility] Stop: 11/27/18 18:00 Last Admin: 11/27/18 09:26 Dose: 10 mg Pregabalin (Lyrica) 50 mg PO ONETIME [facility] Stop: 11/27/18 18:00 Last Admin: 11/27/18 09:25 Dose: 50 mg Propofol (Diprivan 20 Ml) Confirm Administered Dose 600 mg .ROUTE .STK-MED ONE Stop: 11/27/18 08:19 Propofol (Diprivan 20 Ml) Confirm Administered Dose 200 mg .ROUTE .STK-MED ONE Stop: 11/27/18 12:50 Ropivacaine (Naropin 0.5%) Confirm Administered Dose 30 ml .ROUTE .STK-MED ONE Stop: 11/27/18 10:12 Sodium Chloride (Saline Flush) 10 ml FLUSH ASDIRECTED PRN PRN Reason: Keep Vein Open Stop: 11/27/18 18:00 Tranexamic Acid (Cyklokapron) Confirm Administered Dose 1,000 mg .ROUTE .STK- MED ONE Stop: 11/27/18 10:59 Last Admin: 11/27/18 13:17 Dose: 1,000 mg Vancomycin HCl (Vancomycin) Confirm Administered Dose 1 gm .ROUTE .STK-MED ONE Stop: 11/27/18 10:59 Last Admin: 11/27/18 13:05 Dose: 1 gm - Exam Wound/Incisions: Dressing Dry and Intact General: Alert, Cooperative, No Acute Distress Lungs: Normal Respiratory Effort Extremities: Other (NVS intact for RLE. Pat's negative for RLE.) - Problem List Review Problem List Initiated/Reviewed/Updated: Yes - My Orders Last 24 Hours: Active Orders 24 hr Category Date Time Status Bladder Scan [RC] ASDIRECTED Care 11/27/18 21:40 Active Cooling Warming Measures [RC] ASDIRECTED Care 11/27/18 14:06 Inactive Notify Provider [RC] ASDIRECTED Care 11/27/18 14:06 Active Oxygen Therapy [RC] ASDIRECTED Care 11/27/18 14:06 Active Pulse Oximetry [RC] ASDIRECTED Care 11/27/18 14:06 Active Ready for Discharge [RC] PER UNIT ROUTINE Care 11/28/18 08:08 Ordered Regular Diet [DIET] Diet 11/27/18 Lunch Active Aspirin [Ecotrin] Med 11/28/18 09:00 Active 325 mg PO BID Calcium Carbonate/Vitamin D3 [Calcium Carbonate/Vitamin Med 11/28/18 09:00 Active D 600 MG-200 Unit] 2 tab PO DAILY Cholecalciferol (Vitamin D3) [Vitamin D3] Med 11/28/18 09:00 Active 5,000 unit PO DAILY Docusate Sodium [Colace] Med 11/27/18 21:00 Active 100 mg PO BID Metoprolol Succinate [Toprol XL] Med 11/28/18 09:00 Active 25 mg PO DAILY Remove Patch Med 11/30/18 16:00 Active 1 ea TRDERM Q72H Scopolamine [Transderm-Scop] Med 11/27/18 16:00 Active 1.5 mg TRDERM Q72H ceFAZolin [Ancef] 2 gm Med 11/27/18 19:00 Active Premix Bag 1 bag IV Q8H Medication Orders Aspirin (Ecotrin) 325 mg PO BID [facility] Bisacodyl (Dulcolax) 5 mg PO DAILY PRN PRN Reason: Constipation Calcium Carbonate (Calcium Carbonate/Vitamin D 600 Mg-200 Unit) 2 tab PO DAILY [facility] Cholecalciferol (Vitamin D3) 5,000 unit PO DAILY [facility] Cyclobenzaprine HCl (Flexeril) 10 mg PO TID PRN PRN Reason: Spasms Docusate Sodium (Colace) 100 mg PO BID [facility] Last Admin: 11/27/18 20:01 Dose: 100 mg Cefazolin Sodium/Dextrose 2 gm (/ Premix) 50 mls @ 100 mls/hr IV Q8H [facility] Stop: 11/28/18 11:29 Last Admin: 11/28/18 02:01 Dose: 100 mls/hr Infusion: 11/27/18 18:49 Dose: 100 mls/hr Admin: 11/27/18 18:19 Dose: 100 mls/hr Ketorolac Tromethamine (Toradol) 15 mg IVPUSH Q6H PRN PRN Reason: Pain Magnesium Hydroxide (Milk Of Magnesia) 30 ml PO BID PRN PRN Reason: Constipation Metoprolol Succinate (Toprol Xl) 25 mg PO DAILY [facility] Miscellaneous Information (Remove Patch) 1 ea TRDERM Q72H [facility] Morphine Sulfate (Morphine) 2 mg IVPUSH Q2H PRN PRN Reason: Breakthrough Pain Naloxone HCl (Narcan) 0.1 mg IVPUSH Q5M PRN PRN Reason: Oversedation Ondansetron HCl (Zofran) 4 mg IVPUSH Q6H PRN PRN Reason: Nausea/Vomiting Last Admin: 11/27/18 15:42 Dose: 4 mg Oxycodone/Acetaminophen (Percocet 325-5 Mg) 1 - 2 tab PO Q4H PRN PRN Reason: Pain Last Admin: 11/28/18 06:05 Dose: 2 tab Admin: 11/28/18 01:59 Dose: 2 tab Admin: 11/27/18 20:01 Dose: 2 tab Scopolamine (Transderm-Scop) 1.5 mg TRDERM Q72H [facility] Last Admin: 11/27/18 15:42 Dose: 1.5 mg Senna (Senna) 8.6 mg PO BID PRN PRN Reason: Constipation - Assessment Assessment (Free Text/Narrative):: POD#1 - s/p right TKA - Plan Plan (Free Text/Narrative):: 1. 325mg ASA PO BID. The pt reports "very mild nausea" hx with use of ASA. Discussed Xarelto vs. ASA and pt adamant to trial EC ASA at this time and that is reasonable. 2. Hgb 11.6. 3. Discharge to home today if inpt therapy goals met and cleared by Hospitalist service. The pt's case was discussed with Dr. Spicer today.
[2018-11-28] MEDS: Ondansetron 4 MG/2 ML SDV IVPUSH PRN (09:08)
[2018-11-28] MEDS: Docusate Sodium 100 MG Cap PO SCH ×2 (09:50→21:00)
[2018-11-28] MEDS: Calcium Carbonate/Vitamin D3 600 MG-200 Units Tab PO SCH (09:50)
[2018-11-28] MEDS: Cholecalciferol (Vitamin D3) 5,000 UNIT Tab PO SCH (09:51)
[2018-11-28] MEDS: Aspirin 325 MG Tab.EC PO SCH ×2 (09:51→21:00)
[2018-11-28] MEDS: Metoprolol Succinate 25 MG Tab.ER PO SCH (09:53)
[2018-11-28] MEDS ORDERED: Sodium Chloride 0.9% 500 ML IV ONE (11:37)
[2018-11-28] MEDS: Sodium Chloride 0.9% 1,000 ML IV SCH ×2 (12:11→19:37)
[2018-11-28] MEDS ORDERED: Prochlorperazine 5 MG in Sodium Chloride 0.9% 50 ML IV ONE (13:00)
--- NOTE | 2018-11-28 16:08 | PCM.SN ---
- Free Text/Narrative Note: Anesthesia Note: Start: 1510 Stop: 1600 Anesthesia requested for IV start, after multiple attempts 20 gauge to right antecubital noted with good blood return and flushed with 10ml's of normal saline. Patient tolerated multiple attempts well, verbal apology noted via anesthesia provider. Thank you! Jaylin OSULLIVAN
[2018-11-28] MEDS ORDERED: Prochlorperazine 5 MG in Sodium Chloride 0.9% 50 ML IV PRN (18:49)
[2018-11-29] MEDS: Acetaminophen/oxyCODONE 325-5 MG Tab PO PRN (02:01)
[2018-11-29] MEDS: Sodium Chloride 0.9% 1,000 ML IV SCH (03:36)
[2018-11-29] MEDS ORDERED: Magnesium Sulfate/Water 4 GM in Premix Bag 1 BAG IV ONE (06:34)
--- NOTE | 2018-11-29 06:35 | PCM.CONSN ---
- General Info Date of Service: 11/29/18 Admission Dx/Problem (Free Text): Admission Diagnosis/Problem Admission Diagnosis/Problem Osteoarthritis of knee Functional Status: Reports: Pain Controlled, Tolerating Diet, Ambulating, Urinating, Incentive Spirometry. Denies: New Symptoms - Review of Systems General: Reports: No Symptoms. Denies: Fever, Weakness, Chills HEENT: Reports: No Symptoms. Denies: Headaches, Sore Throat Pulmonary: Reports: No Symptoms. Denies: Shortness of Breath, Pleuritic Chest Pain, Cough, Wheezing Cardiovascular: Reports: No Symptoms. Denies: Chest Pain, Palpitations, Dyspnea on Exertion, Edema Gastrointestinal: Reports: No Symptoms. Denies: Abdominal Pain, Constipation, Decreased Appetite, Diarrhea, Nausea, Vomiting Genitourinary: Reports: No Symptoms. Denies: Pain Musculoskeletal: Reports: Leg Pain Skin: Reports: No Symptoms. Denies: Cyanosis Neurological: Reports: No Symptoms. Denies: Confusion, Pre-Existing Deficit Psychiatric: Reports: No Symptoms - Patient Data Vitals - Most Recent: Last Vital Signs Temp 99.0 F 11/29/18 03:38 Pulse 57 L 11/29/18 03:38 Resp 16 11/29/18 03:38 BP 125/52 L 11/29/18 03:38 Pulse Ox 92 L 11/29/18 04:00 Weight - Most Recent: 238 lb 6.4 oz I&O - Last 24 Hours: Intake & Output 11/28/18 11/28/18 11/29/18 14:59 22:59 06:59 Intake Total 0 1650 2679 Output Total 700 1250 Balance 0 950 1429 Lab Results Last 24 Hours: Laboratory Results - last 24 hr 11/29/18 11/29/18 Range/Units 04:50 04:50 WBC 7.34 (3.98-10.04) K/mm3 RBC 3.52 L (3.98-5.22) M/mm3 Hgb 10.4 L (11.2-15.7) gm/L Hct 31.9 L (34.1-44.9) % MCV 90.6 (79.4-94.8) fl MCH 29.5 (25.6-32.2) pg MCHC 32.6 (32.2-35.5) g/dl RDW Std Deviation 41.3 (36.4-46.3) fL Plt Count 154 L (182-369) K/mm3 MPV 11.5 (9.4-12.3) fl Neut % (Auto) 74.0 H (34.0-71.1) % Lymph % (Auto) 13.5 L (19.3-51.7) % [place]ary % (Auto) 12.1 (4.7-12.5) % Eos % (Auto) 0.1 L (0.7-5.8) Baso % (Auto) 0.0 L (0.1-1.2) % Neut # (Auto) 5.43 (1.56-6.13) K/mm3 Lymph # (Auto) 0.99 L (1.18-3.74) K/mm3 Geary # (Auto) 0.89 H (0.24-0.36) K/mm3 Eos # (Auto) 0.01 L (0.04-0.36) K/mm3 Baso # (Auto) 0.00 L (0.01-0.08) K/mm3 Sodium 138 (136-145) mEq/L Potassium 4.1 (3.5-5.1) mEq/L Chloride 105 (98-107) mEq/L Carbon Dioxide 25 (21-32) mEq/L Anion Gap 12.1 (5-15) BUN 20 H (7-18) mg/dL Creatinine 0.8 (0.55-1.02) mg/dL Est Cr Clr Drug Dosing 63.77 mL/min Estimated GFR (MDRD) > 60 (>60) mL/min BUN/Creatinine Ratio 25.0 H (14-18) Glucose 102 (80-115) mg/dL Calcium 9.1 (8.5-10.1) mg/dL Magnesium 1.1 L (1.8-2.4) mg/dl Med Orders - Current: Current Medications Aspirin (Ecotrin) 325 mg PO BID [facility] Last Admin: 11/28/18 21:00 Dose: 325 mg Bisacodyl (Dulcolax) 5 mg PO DAILY PRN PRN Reason: Constipation Calcium Carbonate (Calcium Carbonate/Vitamin D 600 Mg-200 Unit) 2 tab PO DAILY [facility] Last Admin: 11/28/18 09:50 Dose: 2 tab Cholecalciferol (Vitamin D3) 5,000 unit PO DAILY [facility] Last Admin: 11/28/18 09:51 Dose: 5,000 unit Cyclobenzaprine HCl (Flexeril) 10 mg PO TID PRN PRN Reason: Spasms Docusate Sodium (Colace) 100 mg PO BID [facility] Last Admin: 11/28/18 21:00 Dose: 100 mg Sodium Chloride (Normal Saline) 1,000 mls @ 125 mls/hr IV ASDIRECTED [facility] Last Admin: 11/29/18 03:36 Dose: 125 mls/hr Prochlorperazine Edisylate 5 (mg/ Sodium Chloride) 51 mls @ 150 mls/hr IV Q4H PRN PRN Reason: Nausea/Vomiting Ketorolac Tromethamine (Toradol) 15 mg IVPUSH Q6H PRN PRN Reason: Pain Last Admin: 11/28/18 16:09 Dose: 15 mg Magnesium Hydroxide (Milk Of Magnesia) 30 ml PO BID PRN PRN Reason: Constipation Metoprolol Succinate (Toprol Xl) 25 mg PO DAILY [facility] Last Admin: 11/28/18 09:53 Dose: Not Given Miscellaneous Information (Remove Patch) 1 ea TRDERM Q72H [facility] Morphine Sulfate (Morphine) 2 mg IVPUSH Q2H PRN PRN Reason: Breakthrough Pain Naloxone HCl (Narcan) 0.1 mg IVPUSH Q5M PRN PRN Reason: Oversedation Ondansetron HCl (Zofran) 4 mg IVPUSH Q6H PRN PRN Reason: Nausea/Vomiting Last Admin: 11/28/18 09:08 Dose: 4 mg Oxycodone/Acetaminophen (Percocet 325-5 Mg) 1 - 2 tab PO Q4H PRN PRN Reason: Pain Last Admin: 11/29/18 02:01 Dose: 2 tab Scopolamine (Transderm-Scop) 1.5 mg TRDERM Q72H [facility] Last Admin: 11/27/18 15:42 Dose: 1.5 mg Senna (Senna) 8.6 mg PO BID PRN PRN Reason: Constipation Discontinued Medications Acetaminophen (Tylenol) 975 mg PO ONETIME [facility] Stop: 11/27/18 18:00 Last Admin: 11/27/18 09:25 Dose: 975 mg Bupivacaine HCl (Marcaine 0.25%) Confirm Administered Dose 30 ml .ROUTE .STK- MED ONE Stop: 11/27/18 10:59 Last Admin: 11/27/18 13:03 Dose: 30 ml Cefazolin Sodium (Ancef) Confirm Administered Dose 2 gm .ROUTE .STK-MED ONE Stop: 11/27/18 08:19 Last Admin: 11/27/18 13:01 Dose: 2 gm Cefazolin Sodium (Ancef) Confirm Administered Dose 2 gm .ROUTE .STK-MED ONE Stop: 11/27/18 10:59 Morphine Sulfate 8 mg/Epinephrine HCl 0.3 mg/Cefuroxime Sodium 750 mg/Ketorolac Tromethamine 30 mg/Sodium Chloride 27.9 ml 0 mg .XX ONETIME ONE Stop: 11/27/18 07:31 Last Admin: 11/27/18 13:02 Dose: 788.3 mg Ephedrine Sulfate (Ephedrine In Ns) Confirm Administered Dose 25 mg .ROUTE .STK- MED ONE Stop: 11/27/18 12:27 Epinephrine HCl (Adrenalin) Confirm Administered Dose 1 mg .ROUTE .STK-MED ONE Stop: 11/27/18 10:12 Fentanyl (Sublimaze) Confirm Administered Dose 100 mcg .ROUTE .STK-MED ONE Stop: 11/27/18 08:19 Fentanyl (Sublimaze) 50 mcg IVPUSH Q5M PRN PRN Reason: pain Stop: 11/27/18 18:00 Haloperidol Lactate (Haldol) 1 mg IVPUSH ONETIME ONE Stop: 11/27/18 18:01 Last Admin: 11/27/18 18:16 Dose: 1 mg Lactated Ringer's (Ringers, Lactated) 1,000 mls @ 125 mls/hr IV ASDIRECTED [facility] Stop: 11/27/18 23:00 Last Admin: 11/27/18 09:20 Dose: 125 mls/hr Cefazolin Sodium/Dextrose 2 gm (/ Premix) 50 mls @ 100 mls/hr IV Q8H [facility] Stop: 11/28/18 11:29 Last Admin: 11/28/18 12:12 Dose: 100 mls/hr Lactated Ringer's (Ringers, Lactated) Confirm Administered Dose 1,000 mls @ as directed .ROUTE .STK-MED ONE Stop: 11/27/18 13:40 Sodium Chloride (Normal Saline) 500 mls @ 999 mls/hr IV .BOLUS ONE Stop: 11/27/18 18:31 Last Admin: 11/27/18 18:19 Dose: 999 mls/hr Sodium Chloride (Normal Saline) 500 mls @ 999 mls/hr IV .BOLUS ONE Stop: 11/28/18 12:07 Last Admin: 11/28/18 12:12 Dose: Not Given Prochlorperazine Edisylate 5 (mg/ Sodium Chloride) 51 mls @ 150 mls/hr IV ONETIME ONE Stop: 11/28/18 13:20 Last Admin: 11/28/18 15:54 Dose: 150 mls/hr Iodine (Iodine 2% Mild Tincture) Confirm Administered Dose 30 ml .ROUTE .STK- MED ONE Stop: 11/27/18 10:59 Last Admin: 11/27/18 12:58 Dose: 18 ml Lidocaine/Sodium Bicarbonate (Buffered Lidocaine 1% In Ns 8.4%) 0.25 ml IDERM ONETIME PRN PRN Reason: Prior to IV Start Stop: 11/27/18 18:00 Midazolam HCl (Versed 1 Mg/Ml) Confirm Administered Dose 2 mg .ROUTE .STK-MED ONE Stop: 11/27/18 08:19 Ondansetron HCl (Zofran) Confirm Administered Dose 4 mg .ROUTE .STK-MED ONE Stop: 11/27/18 08:19 Oxycodone HCl (Oxycontin) 10 mg PO ONETIME [facility] Stop: 11/27/18 18:00 Last Admin: 11/27/18 09:26 Dose: 10 mg Pregabalin (Lyrica) 50 mg PO ONETIME [facility] Stop: 11/27/18 18:00 Last Admin: 11/27/18 09:25 Dose: 50 mg Propofol (Diprivan 20 Ml) Confirm Administered Dose 600 mg .ROUTE .STK-MED ONE Stop: 11/27/18 08:19 Propofol (Diprivan 20 Ml) Confirm Administered Dose 200 mg .ROUTE .STK-MED ONE Stop: 11/27/18 12:50 Ropivacaine (Naropin 0.5%) Confirm Administered Dose 30 ml .ROUTE .STK-MED ONE Stop: 11/27/18 10:12 Sodium Chloride (Saline Flush) 10 ml FLUSH ASDIRECTED PRN PRN Reason: Keep Vein Open Stop: 11/27/18 18:00 Tranexamic Acid (Cyklokapron) Confirm Administered Dose 1,000 mg .ROUTE .STK- MED ONE Stop: 11/27/18 10:59 Last Admin: 11/27/18 13:17 Dose: 1,000 mg Vancomycin HCl (Vancomycin) Confirm Administered Dose 1 gm .ROUTE .STK-MED ONE Stop: 11/27/18 10:59 Last Admin: 11/27/18 13:05 Dose: 1 gm - Exam Quality Assessment: DVT Prophylaxis General: Alert, Oriented, Cooperative, No Acute Distress HEENT: Pupils Equal, Pupils Reactive, EOMI, Mucous Membr. Moist/[place] Neck: Supple, Trachea Midline Lungs: Clear to Auscultation, Normal Respiratory Effort Cardiovascular: Regular Rate, Regular Rhythm GI/Abdominal Exam: Normal Bowel Sounds, Soft, Non-Tender, No Distention, No Abnormal Bruit, No Mass (Female) Exam: Deferred Back Exam: Normal Inspection, Full Range of Motion Extremities: No Pedal Edema, Normal Capillary Refill, Leg Pain, Limited Range of Motion, Other (Bandage in place on right leg. Cooling pack in place. ) Peripheral Pulses: 2+: Radial (L), Radial (R), Dorsalis Pedis (L), Dorsalis Pedis (R) Skin: Warm, Dry, Intact Wound/Incisions: Dressing Dry and Intact, No Drainage Neurological: No New Focal Deficit Psy/Mental Status: Alert, Normal Affect, Normal Mood Consult PN Assessment/Plan POD#: 2 Procedures: Procedures ASSAY OF TROPONIN QUANT (12/20/15) ASSAY THYROID STIM HORMONE (03/12/17) BL SMEAR W/DIFF WBC COUNT (04/24/18) C-REACTIVE PROTEIN (04/24/18) CHEST X-RAY 1 VIEW FRONTAL (12/20/15) COMPLETE CBC AUTOMATED (04/24/18) COMPLETE CBC W/AUTO DIFF WBC (03/12/17) COMPREHEN METABOLIC PANEL (04/24/18) CT ABD & PELV W/CONTRAST (04/24/18) CT ANGIOGRAPHY CHEST (03/26/15) ELECTROCARDIOGRAM TRACING (12/20/15) EMERGENCY DEPT VISIT (04/24/18) EMERGENCY DEPT VISIT (12/20/15) EMERGENCY DEPT VISIT (03/24/15) FIBRIN DEGRADATION QUANT (03/24/15) HYDRATE IV INFUSION ADD-ON (04/24/18) LIPID PANEL (03/12/17) MANUAL THERAPY 1/> REGIONS (06/03/14) METABOLIC PANEL TOTAL CA (06/02/17) PT EVALUATION (05/16/14) ROUTINE VENIPUNCTURE (04/24/18) THER/PROPH/DIAG INJ IV PUSH (04/24/18) THER/PROPH/DIAG INJ SC/IM (03/24/15) THERAPEUTIC EXERCISES (06/03/14) ULTRASOUND BREAST LIMITED (04/04/17) ULTRASOUND THERAPY (05/16/14) URINALYSIS AUTO W/SCOPE (04/24/18) URINE BACTERIA CULTURE (04/24/18) URINE CULTURE/COLONY COUNT (04/24/18) (1) S/P total knee arthroplasty SNOMED Code(s): 0209231232816, 311923633, 5696929842479 Code(s): Z96.659 - PRESENCE OF UNSPECIFIED ARTIFICIAL KNEE JOINT Priority: High Current Visit: Yes Qualifiers: Laterality: right Qualified Code(s): Z96.651 - Presence of right artificial knee joint (2) Osteoarthritis SNOMED Code(s): 167114823 Code(s): M19.90 - UNSPECIFIED OSTEOARTHRITIS, UNSPECIFIED SITE Priority: High Current Visit: Yes Qualifiers: Osteoarthritis location: knee Osteoarthritis type: primary Laterality: right Qualified Code(s): M17.11 - Unilateral primary osteoarthritis, right knee (3) HTN (hypertension) SNOMED Code(s): 83873894 Code(s): I10 - ESSENTIAL (PRIMARY) HYPERTENSION Priority: Low Current Visit: No Qualifiers: Hypertension type: unspecified Qualified Code(s): I10 - Essential (primary ) hypertension (4) Rheumatoid arthritis SNOMED Code(s): 27331782 Code(s): M06.9 - RHEUMATOID ARTHRITIS, UNSPECIFIED Priority: Low Current Visit: No Qualifiers: Rheumatoid arthritis location: unspecified site Rheumatoid factor presence : unspecified presence Qualified Code(s): M06.9 - Rheumatoid arthritis, unspecified (5) Urolithiasis SNOMED Code(s): 96516766, 875261514 Code(s): N20.9 - URINARY CALCULUS, UNSPECIFIED Priority: Low Current Visit: No Qualifiers: Urinary calculus location: other lower urinary tract location Qualified Code(s): N21.8 - Other lower urinary tract calculus (6) Osteopenia SNOMED Code(s): 651935413 Code(s): M85.80 - OTH DISRD OF BONE DENSITY AND STRUCTURE, UNSPECIFIED SITE Priority: Low Current Visit: No Qualifiers: Osteopenia location: unspecified Qualified Code(s): M85.80 - Other specified disorders of bone density and structure, unspecified site (7) Recurrent UTI SNOMED Code(s): 370664429 Code(s): N39.0 - URINARY TRACT INFECTION, SITE NOT SPECIFIED Priority: Low Current Visit: No (8) Chronic back pain SNOMED Code(s): 252454301 Code(s): M54.9 - DORSALGIA, UNSPECIFIED; G89.29 - OTHER CHRONIC PAIN Priority: Low Current Visit: No Qualifiers: Back pain location: back pain in unspecified location Back pain laterality : unspecified Qualified Code(s): M54.9 - Dorsalgia, unspecified; G89.29 - Other chronic pain (9) Post-operative nausea and vomiting SNOMED Code(s): 1259264 Code(s): R11.2 - NAUSEA WITH VOMITING, UNSPECIFIED; Z98.890 - OTHER SPECIFIED POSTPROCEDURAL STATES Priority: High Current Visit: Yes (10) Hypomagnesemia SNOMED Code(s): 572859967 Code(s): E83.42 - HYPOMAGNESEMIA Priority: High Current Visit: Yes Problem List Initiated/Reviewed/Updated: Yes My Orders Last 24 Hours: My Active Orders 11/28/18 09:00 Calcium Carbonate/Vitamin D3 [Calcium Carbonate/Vitamin D 600 MG-200 Unit] 2 tab PO DAILY Cholecalciferol (Vitamin D3) [Vitamin D3] 5,000 unit PO DAILY Metoprolol Succinate [Toprol XL] 25 mg PO DAILY 11/28/18 11:45 Sodium Chloride 0.9% [Normal Saline] 1,000 ml IV ASDIRECTED 11/30/18 05:11 BASIC METABOLIC PANEL,BMP [CHEM] AM CBC WITH AUTO DIFF [HEME] AM MAGNESIUM [CHEM] AM 12/01/18 05:11 BASIC METABOLIC PANEL,BMP [CHEM] AM CBC WITH AUTO DIFF [HEME] AM MAGNESIUM [CHEM] AM 12/02/18 05:11 BASIC METABOLIC PANEL,BMP [CHEM] AM CBC WITH AUTO DIFF [HEME] AM MAGNESIUM [CHEM] AM Plan: I/P: Acute: S/P right total knee arthroplasty - post-operative day 2 -DVT prophylaxis and pain management per primary care team -PT/OT -IS/RT -Monitor oxygen saturation -Titrate oxygen as needed -Home medications reviewed -Vital signs stable -Monitor labs -Pre-operative Hgb was 12.8; Now 11.6-->10.4 -Pre-operative GFR was 75; Now >60 Osteoarthritis of right knee -Pain management per primary care team S/P Post-operative nausea and vomiting -Intractable nausea and vomiting after surgery -IV fluids and Haldol given on first night -Was been unable to eat POD 1 -Nauseated with movement POD1 -IV fluids ordered -Antiemetic medications as ordered Hypomagnesemia -Magnesium 1.1 -Supplemented Chronic: HTN RA Urolithiasis Osteopenia recurrent UTIs chronic back pain Plan: CM for discharge planning GI prophylaxis Home medications as indicated Other orders as listed above Routine AM labs She is a full code. Her PCP is Dr. Olivia. Overall Iliana did ok from a hospitalist standpoint. She remained nauseated POD 1 and was held overnight for a second day. She was given Compazine with good response. She has been able to eat and nausea has been controlled today. She will be discharged on PRN Zofran. Otherwise she feels good. Labs and vital signs remain stable. Her magnesium was low and was supplemented. She has been ambulating and working with PT and OT. She has been urinating and is off of oxygen. She will be cleared for discharge pending primary team and PT/OT agreement. Thank you for allowing us to participate in the care of this patient!!
[2018-11-29 07:58] VITALS: BP 166/83
[2018-11-29] MEDS: Aspirin 325 MG Tab.EC PO SCH (08:04)
[2018-11-29] MEDS: Metoprolol Succinate 25 MG Tab.ER PO SCH (08:04)
[2018-11-29] MEDS: Calcium Carbonate/Vitamin D3 600 MG-200 Units Tab PO SCH (08:04)
[2018-11-29] MEDS: Docusate Sodium 100 MG Cap PO SCH (08:04)
--- NOTE | 2018-11-29 08:05 | PCM.SURGPN ---
- General Info Date of Service: 11/29/18 POD#: 2 Functional Status: Reports: Pain Controlled, Tolerating Diet, Ambulating, Urinating, Incentive Spirometry, Other (The pt states she feels much improved today re: nausea. The pt reports she has been able to eat.) - Patient Data Vitals - Most Recent: Last Vital Signs Temp 98.8 F 11/29/18 07:28 Pulse 71 11/29/18 07:28 Resp 15 11/29/18 07:28 BP 166/83 H 11/29/18 07:28 Pulse Ox 94 L 11/29/18 07:28 Weight - Most Recent: 238 lb 6.4 oz I&O - Last 24 Hours: Intake & Output 11/28/18 11/29/18 11/29/18 22:59 06:59 14:59 Intake Total 1650 2679 Output Total 700 1250 Balance 950 1429 Lab Results Last 24 Hrs: Laboratory Results - last 24 hr 11/29/18 11/29/18 Range/Units 04:50 04:50 WBC 7.34 (3.98-10.04) K/mm3 RBC 3.52 L (3.98-5.22) M/mm3 Hgb 10.4 L (11.2-15.7) gm/L Hct 31.9 L (34.1-44.9) % MCV 90.6 (79.4-94.8) fl MCH 29.5 (25.6-32.2) pg MCHC 32.6 (32.2-35.5) g/dl RDW Std Deviation 41.3 (36.4-46.3) fL Plt Count 154 L (182-369) K/mm3 MPV 11.5 (9.4-12.3) fl Neut % (Auto) 74.0 H (34.0-71.1) % Lymph % (Auto) 13.5 L (19.3-51.7) % [place] % (Auto) 12.1 (4.7-12.5) % Eos % (Auto) 0.1 L (0.7-5.8) Baso % (Auto) 0.0 L (0.1-1.2) % Neut # (Auto) 5.43 (1.56-6.13) K/mm3 Lymph # (Auto) 0.99 L (1.18-3.74) K/mm3 [place] # (Auto) 0.89 H (0.24-0.36) K/mm3 Eos # (Auto) 0.01 L (0.04-0.36) K/mm3 Baso # (Auto) 0.00 L (0.01-0.08) K/mm3 Sodium 138 (136-145) mEq/L Potassium 4.1 (3.5-5.1) mEq/L Chloride 105 (98-107) mEq/L Carbon Dioxide 25 (21-32) mEq/L Anion Gap 12.1 (5-15) BUN 20 H (7-18) mg/dL Creatinine 0.8 (0.55-1.02) mg/dL Est Cr Clr Drug Dosing 63.77 mL/min Estimated GFR (MDRD) > 60 (>60) mL/min BUN/Creatinine Ratio 25.0 H (14-18) Glucose 102 (80-115) mg/dL Calcium 9.1 (8.5-10.1) mg/dL Magnesium 1.1 L (1.8-2.4) mg/dl Med Orders - Current: Current Medications Aspirin (Ecotrin) 325 mg PO BID [facility] Last Admin: 11/28/18 21:00 Dose: 325 mg Bisacodyl (Dulcolax) 5 mg PO DAILY PRN PRN Reason: Constipation Calcium Carbonate (Calcium Carbonate/Vitamin D 600 Mg-200 Unit) 2 tab PO DAILY [facility] Last Admin: 11/28/18 09:50 Dose: 2 tab Cholecalciferol (Vitamin D3) 5,000 unit PO DAILY [facility] Last Admin: 11/28/18 09:51 Dose: 5,000 unit Cyclobenzaprine HCl (Flexeril) 10 mg PO TID PRN PRN Reason: Spasms Docusate Sodium (Colace) 100 mg PO BID [facility] Last Admin: 11/28/18 21:00 Dose: 100 mg Prochlorperazine Edisylate 5 (mg/ Sodium Chloride) 51 mls @ 150 mls/hr IV Q4H PRN PRN Reason: Nausea/Vomiting Magnesium Sulfate 4 gm/ Premix 50 mls @ 12.5 mls/hr IV ONETIME ONE Stop: 11/29/18 10:33 Last Admin: 11/29/18 06:46 Dose: 12.5 mls/hr Ketorolac Tromethamine (Toradol) 15 mg IVPUSH Q6H PRN PRN Reason: Pain Last Admin: 11/28/18 16:09 Dose: 15 mg Magnesium Hydroxide (Milk Of Magnesia) 30 ml PO BID PRN PRN Reason: Constipation Metoprolol Succinate (Toprol Xl) 25 mg PO DAILY [facility] Last Admin: 11/28/18 09:53 Dose: Not Given Miscellaneous Information (Remove Patch) 1 ea TRDERM Q72H [facility] Morphine Sulfate (Morphine) 2 mg IVPUSH Q2H PRN PRN Reason: Breakthrough Pain Naloxone HCl (Narcan) 0.1 mg IVPUSH Q5M PRN PRN Reason: Oversedation Ondansetron HCl (Zofran) 4 mg IVPUSH Q6H PRN PRN Reason: Nausea/Vomiting Last Admin: 11/28/18 09:08 Dose: 4 mg Oxycodone/Acetaminophen (Percocet 325-5 Mg) 1 - 2 tab PO Q4H PRN PRN Reason: Pain Last Admin: 11/29/18 02:01 Dose: 2 tab Scopolamine (Transderm-Scop) 1.5 mg TRDERM Q72H [facility] Last Admin: 11/27/18 15:42 Dose: 1.5 mg Senna (Senna) 8.6 mg PO BID PRN PRN Reason: Constipation Discontinued Medications Acetaminophen (Tylenol) 975 mg PO ONETIME [facility] Stop: 11/27/18 18:00 Last Admin: 11/27/18 09:25 Dose: 975 mg Bupivacaine HCl (Marcaine 0.25%) Confirm Administered Dose 30 ml .ROUTE .STK- MED ONE Stop: 11/27/18 10:59 Last Admin: 11/27/18 13:03 Dose: 30 ml Cefazolin Sodium (Ancef) Confirm Administered Dose 2 gm .ROUTE .STK-MED ONE Stop: 11/27/18 08:19 Last Admin: 11/27/18 13:01 Dose: 2 gm Cefazolin Sodium (Ancef) Confirm Administered Dose 2 gm .ROUTE .STK-MED ONE Stop: 11/27/18 10:59 Morphine Sulfate 8 mg/Epinephrine HCl 0.3 mg/Cefuroxime Sodium 750 mg/Ketorolac Tromethamine 30 mg/Sodium Chloride 27.9 ml 0 mg .XX ONETIME ONE Stop: 11/27/18 07:31 Last Admin: 11/27/18 13:02 Dose: 788.3 mg Ephedrine Sulfate (Ephedrine In Ns) Confirm Administered Dose 25 mg .ROUTE .STK- MED ONE Stop: 11/27/18 12:27 Epinephrine HCl (Adrenalin) Confirm Administered Dose 1 mg .ROUTE .STK-MED ONE Stop: 11/27/18 10:12 Fentanyl (Sublimaze) Confirm Administered Dose 100 mcg .ROUTE .STK-MED ONE Stop: 11/27/18 08:19 Fentanyl (Sublimaze) 50 mcg IVPUSH Q5M PRN PRN Reason: pain Stop: 11/27/18 18:00 Haloperidol Lactate (Haldol) 1 mg IVPUSH ONETIME ONE Stop: 11/27/18 18:01 Last Admin: 11/27/18 18:16 Dose: 1 mg Lactated Ringer's (Ringers, Lactated) 1,000 mls @ 125 mls/hr IV ASDIRECTED [facility] Stop: 11/27/18 23:00 Last Admin: 11/27/18 09:20 Dose: 125 mls/hr Cefazolin Sodium/Dextrose 2 gm (/ Premix) 50 mls @ 100 mls/hr IV Q8H [facility] Stop: 11/28/18 11:29 Last Admin: 11/28/18 12:12 Dose: 100 mls/hr Lactated Ringer's (Ringers, Lactated) Confirm Administered Dose 1,000 mls @ as directed .ROUTE .STK-MED ONE Stop: 11/27/18 13:40 Sodium Chloride (Normal Saline) 500 mls @ 999 mls/hr IV .BOLUS ONE Stop: 11/27/18 18:31 Last Admin: 11/27/18 18:19 Dose: 999 mls/hr Sodium Chloride (Normal Saline) 500 mls @ 999 mls/hr IV .BOLUS ONE Stop: 11/28/18 12:07 Last Admin: 11/28/18 12:12 Dose: Not Given Sodium Chloride (Normal Saline) 1,000 mls @ 125 mls/hr IV ASDIRECTED [facility] Last Admin: 11/29/18 03:36 Dose: 125 mls/hr Prochlorperazine Edisylate 5 (mg/ Sodium Chloride) 51 mls @ 150 mls/hr IV ONETIME ONE Stop: 11/28/18 13:20 Last Admin: 11/28/18 15:54 Dose: 150 mls/hr Iodine (Iodine 2% Mild Tincture) Confirm Administered Dose 30 ml .ROUTE .STK- MED ONE Stop: 11/27/18 10:59 Last Admin: 11/27/18 12:58 Dose: 18 ml Lidocaine/Sodium Bicarbonate (Buffered Lidocaine 1% In Ns 8.4%) 0.25 ml IDERM ONETIME PRN PRN Reason: Prior to IV Start Stop: 11/27/18 18:00 Midazolam HCl (Versed 1 Mg/Ml) Confirm Administered Dose 2 mg .ROUTE .STK-MED ONE Stop: 11/27/18 08:19 Ondansetron HCl (Zofran) Confirm Administered Dose 4 mg .ROUTE .STK-MED ONE Stop: 11/27/18 08:19 Oxycodone HCl (Oxycontin) 10 mg PO ONETIME [facility] Stop: 11/27/18 18:00 Last Admin: 11/27/18 09:26 Dose: 10 mg Pregabalin (Lyrica) 50 mg PO ONETIME [facility] Stop: 11/27/18 18:00 Last Admin: 11/27/18 09:25 Dose: 50 mg Propofol (Diprivan 20 Ml) Confirm Administered Dose 600 mg .ROUTE .STK-MED ONE Stop: 11/27/18 08:19 Propofol (Diprivan 20 Ml) Confirm Administered Dose 200 mg .ROUTE .STK-MED ONE Stop: 11/27/18 12:50 Ropivacaine (Naropin 0.5%) Confirm Administered Dose 30 ml .ROUTE .STK-MED ONE Stop: 11/27/18 10:12 Sodium Chloride (Saline Flush) 10 ml FLUSH ASDIRECTED PRN PRN Reason: Keep Vein Open Stop: 11/27/18 18:00 Tranexamic Acid (Cyklokapron) Confirm Administered Dose 1,000 mg .ROUTE .STK- MED ONE Stop: 11/27/18 10:59 Last Admin: 11/27/18 13:17 Dose: 1,000 mg Vancomycin HCl (Vancomycin) Confirm Administered Dose 1 gm .ROUTE .STK-MED ONE Stop: 11/27/18 10:59 Last Admin: 11/27/18 13:05 Dose: 1 gm - Exam Wound/Incisions: Dressing Dry and Intact General: Alert, Cooperative, No Acute Distress Lungs: Normal Respiratory Effort Extremities: Other (NVS intact for BLE. Pat's negative.) - Problem List Review Problem List Initiated/Reviewed/Updated: Yes - My Orders Last 24 Hours: Active Orders 24 hr Category Date Time Status Communication Order [RC] ASDIRECTED Care 11/29/18 08:02 Ordered Ready for Discharge [RC] PER UNIT ROUTINE Care 11/28/18 08:08 Inactive Ready for Discharge [RC] PER UNIT ROUTINE Care 11/29/18 07:55 Active BASIC METABOLIC PANEL,BMP [CHEM] AM Lab 11/30/18 05:11 Ordered BASIC METABOLIC PANEL,BMP [CHEM] AM Lab 12/01/18 05:11 Ordered BASIC METABOLIC PANEL,BMP [CHEM] AM Lab 12/02/18 05:11 Ordered CBC WITH AUTO DIFF [HEME] AM Lab 11/30/18 05:11 Ordered CBC WITH AUTO DIFF [HEME] AM Lab 12/01/18 05:11 Ordered CBC WITH AUTO DIFF [HEME] AM Lab 12/02/18 05:11 Ordered MAGNESIUM [CHEM] AM Lab 11/30/18 05:11 Ordered MAGNESIUM [CHEM] AM Lab 12/01/18 05:11 Ordered MAGNESIUM [CHEM] AM Lab 12/02/18 05:11 Ordered Aspirin [Ecotrin] Med 11/28/18 09:00 Active 325 mg PO BID Calcium Carbonate/Vitamin D3 [Calcium Carbonate/Vitamin Med 11/28/18 09:00 Active D 600 MG-200 Unit] 2 tab PO DAILY Cholecalciferol (Vitamin D3) [Vitamin D3] Med 11/28/18 09:00 Active 5,000 unit PO DAILY Magnesium Sulfate/Water [Magnesium Sulfate in Water Med 11/29/18 06:34 Active Premix] 4 gm Premix Bag 1 bag IV ONETIME Metoprolol Succinate [Toprol XL] Med 11/28/18 09:00 Active 25 mg PO DAILY Prochlorperazine [Compazine] 5 mg Med 11/28/18 18:49 Active Sodium Chloride 0.9% [Normal Saline] 50 ml IV Q4H Remove Patch Med 11/30/18 16:00 Active 1 ea TRDERM Q72H Medication Orders Aspirin (Ecotrin) 325 mg PO BID [facility] Last Admin: 11/28/18 21:00 Dose: 325 mg Admin: 11/28/18 09:51 Dose: 325 mg Bisacodyl (Dulcolax) 5 mg PO DAILY PRN PRN Reason: Constipation Calcium Carbonate (Calcium Carbonate/Vitamin D 600 Mg-200 Unit) 2 tab PO DAILY [facility] Last Admin: 11/28/18 09:50 Dose: 2 tab Cholecalciferol (Vitamin D3) 5,000 unit PO DAILY [facility] Last Admin: 11/28/18 09:51 Dose: 5,000 unit Cyclobenzaprine HCl (Flexeril) 10 mg PO TID PRN PRN Reason: Spasms Docusate Sodium (Colace) 100 mg PO BID [facility] Last Admin: 11/28/18 21:00 Dose: 100 mg Admin: 11/28/18 09:50 Dose: 100 mg Admin: 11/27/18 20:01 Dose: 100 mg Prochlorperazine Edisylate 5 (mg/ Sodium Chloride) 51 mls @ 150 mls/hr IV Q4H PRN PRN Reason: Nausea/Vomiting Magnesium Sulfate 4 gm/ Premix 50 mls @ 12.5 mls/hr IV ONETIME ONE Stop: 11/29/18 10:33 Last Admin: 11/29/18 06:46 Dose: 12.5 mls/hr Ketorolac Tromethamine (Toradol) 15 mg IVPUSH Q6H PRN PRN Reason: Pain Last Admin: 11/28/18 16:09 Dose: 15 mg Magnesium Hydroxide (Milk Of Magnesia) 30 ml PO BID PRN PRN Reason: Constipation Metoprolol Succinate (Toprol Xl) 25 mg PO DAILY [facility] Last Admin: 11/28/18 09:53 Dose: Not Given Miscellaneous Information (Remove Patch) 1 ea TRDERM Q72H [facility] Morphine Sulfate (Morphine) 2 mg IVPUSH Q2H PRN PRN Reason: Breakthrough Pain Naloxone HCl (Narcan) 0.1 mg IVPUSH Q5M PRN PRN Reason: Oversedation Ondansetron HCl (Zofran) 4 mg IVPUSH Q6H PRN PRN Reason: Nausea/Vomiting Last Admin: 11/28/18 09:08 Dose: 4 mg Admin: 11/27/18 15:42 Dose: 4 mg Oxycodone/Acetaminophen (Percocet 325-5 Mg) 1 - 2 tab PO Q4H PRN PRN Reason: Pain Last Admin: 11/29/18 02:01 Dose: 2 tab Admin: 11/28/18 20:59 Dose: 2 tab Admin: 11/28/18 06:05 Dose: 2 tab Admin: 11/28/18 01:59 Dose: 2 tab Admin: 11/27/18 20:01 Dose: 2 tab Scopolamine (Transderm-Scop) 1.5 mg TRDERM Q72H [facility] Last Admin: 11/27/18 15:42 Dose: 1.5 mg Senna (Senna) 8.6 mg PO BID PRN PRN Reason: Constipation - Assessment Assessment (Free Text/Narrative):: POD#2 - s/p right TKA - Plan Plan (Free Text/Narrative):: 1. The pt remained in Hospital overnight for treatment and monitoring of nausea and vomiting. This has improved. 2. Discharge to home today if cleared by Hospitalist service and therapies. 3. 325mg ASA PO BID. Discussed frequent mobility at home. The pt will have assistance of her . The pt's case was discussed with Dr. Spicer.
--- NOTE | 2018-11-29 08:06 | PCM.DCSUM1 ---
Discharge Summary - Hospital Course Brief History: Iliana is a 63 yo female who underwent right TKA with Dr. Spicer on . The procedure was completed under spinal anesthesia. The pt tolerated the procedure well and was admitted to the Medical-Surgical Unit. Medical management was provided by the Hospitalist service. The pt's Hospital course was remarkable for post-op nausea and vomiting. The pt's Hgb on POD#1 was 11.6. The pt was prescribed 325mg ASA BID for VTE prophylaxis. SCDs and TEDs were also ordered. A Mepilex dressing was placed at the incision site at the time of surgery and remained clean and dry. The pt participated in P.T. and O.T. and progressed well after nausea improved. The pt was allowed to WBAT. On POD#2, the pt was deemed appropriate to discharge to home with her . Diagnosis: Stroke: No - Discharge Data Discharge Date: 11/29/18 Discharge Disposition: Home, Self-Care 01 Condition: Good - Patient Summary/Data Operative Procedure(s) Performed: right total knee arthroplasty Consults: Consultations 11/27/ 06:40 OT Evaluation and Treatment [CONS] Routine PT Evaluation and Treatment [CONS] Routine 11/27/18 06:42 Consult to Physician [CONS] Routine - Patient Instructions Diet: Usual Diet as Tolerated Activity: Apply Ice, As Tolerated, Bedrest, May Use Bathroom, Elevate Extremity Driving: Do Not Drive Showering/Bathing: May Shower Wound/Incision Care: Keep Operative Site/Wound Site Clean and Dry, Do NOT Change Dressing Notify Provider of: Fever, Increased Pain, Swelling and Redness, Drainage, Nausea and/or Vomiting Other/Special Instructions: Please get up and moving around EVERY HOUR while awake. This helps to prevent blood clots. Please use your walker and have help with mobility as needed. Take a short walk in your home every hour while awake. Please take 325mg Aspirin TWICE daily. The aspirin is being used for blood clot prevention and not for pain management so please do not miss a dose of the medication. You could use a medication like Zantac or Pepcid and a medication like Prilosec or Nexium to protect your stomach while you are using the aspirin. At home, please complete the exercises that you learned during the Hospital stay. Schedule for physical therapy. Use the pain medication as needed. The medication may cause drowsiness and constipation. Contact your primary care provider for instructions if you are constipated. You may use a stool softener like docusate sodium or Colace 100mg twice daily and/or a laxative like Miralax daily for constipation. Increase your water and fiber intake while you are using the pain medication. Discontinue use of the pain medication as soon as able. Please do not use other medications that may cause drowsiness (other pain medications, anxiety pills, cold medications, sleeping pills, etc) while using the prescription pain medication. Do not use alcohol while using the pain medication. You may use acetaminophen or Tylenol for pain management, however, please ensure you are not using over 4000 mg or 4 grams of acetaminophen per day from all sources. Your pain medication has 325mg of acetaminophen per tablet. At this time, please do not use ibuprofen (Motrin, Advil) or naproxen (Aleve) for pain management as you are using the aspirin. When the aspirin course is completed in 4 to 6 weeks, you could use ibuprofen or naproxen for pain management (if this is allowed by your primary care provider). Also, do not use the meloxicam or Mobic while you are using the aspirin. Wear the SHANI hose during the day and you may remove these at night. Elevate the limb to decrease swelling. Place ice to the area often. Place a towel between your skin and the blue pad. Use the incentive spirometer often. Take deep breaths throughout the day. Please keep the dressing in place until follow-up. Notify the Clinic if the dressing becomes saturated. Increase your protein intake while you are healing. If you have diabetes, please closely monitor your blood sugars and notify your primary care provider with abnormal values. Elevated blood sugars increases the risk of infection. YOUR LIVER tests were elevated with the lab draw on 11-28-2018. Please schedule a follow-up with your primary care provider to determine if further testing or intervention is needed. Call the Clinic with questions or concerns - [phone]. - Discharge Plan *PRESCRIPTION DRUG MONITORING PROGRAM REVIEWED*: No *COPY OF PRESCRIPTION DRUG MONITORING REPORT IN PATIENT BANDAR: No Prescriptions/Med Rec: Acetaminophen/oxyCODONE [Percocet 325-5 MG] 1 - 2 tab PO Q4H PRN #60 tablet PRN Reason: Pain Aspirin [Ecotrin EC] 325 mg PO BID #84 tab.ec Cyclobenzaprine [Flexeril] 10 mg PO TID PRN #40 tablet PRN Reason: Spasms Ondansetron [Zofran] 4 mg PO Q6H #12 tab Home Medications: Home Meds Ca Carbonate/Vitamin D3/Vit K [Calcium + D Soft Chewable Tab] 2.5 tab PO DAILY 11/24/18 [History] Cholecalciferol (Vitamin D3) [Vitamin D3] 5,000 unit PO DAILY 11/24/18 [History] Lisinopril 10 mg PO DAILY 11/24/18 [History] Metoprolol Succinate 25 mg PO DAILY 11/24/18 [History] Spironolactone 50 mg PO DAILY 11/24/18 [History] Acetaminophen [Tylenol Extra Strength] 500 mg PO Q4H PRN #1 11/28/18 [Rx] Acetaminophen/oxyCODONE [Percocet 325-5 MG] 1 - 2 tab PO Q4H PRN #60 tablet 10/13 [Rx] Aspirin [Ecotrin EC] 325 mg PO BID #84 tab.ec 11/28/18 [Rx] Bisacodyl [Dulcolax] 5 mg PO DAILY PRN tablet 11/28/18 [Rx] Cyclobenzaprine [Flexeril] 10 mg PO TID PRN #40 tablet 11/28/18 [Rx] Docusate Sodium [Colace] 100 mg PO BID cap 11/28/18 [Rx] Magnesium Hydroxide [Milk of Magnesia] 30 ml PO BID PRN cup 11/28/18 [Rx] Ondansetron [Zofran] 4 mg PO Q6H #12 tab 11/28/18 [Rx] Remove Patch 1 ea TRDERM Q72H each 11/28/18 [Rx] Sennosides [Senna] 8.6 mg PO BID PRN tablet 11/28/18 [Rx] Patient Handouts: Total Knee Replacement, Care After, Oybu-xu-Yang, Total Knee Replacement, Oykv-an-Gggi, Knee Rehabilitation Guidelines Following Surgery Referrals: Phyllis Casillas PA-C [Physician Mathematics Academic Chair] - - Discharge Summary/Plan Comment DC Time >30 min.: No - Patient Data Vitals - Most Recent: Last Vital Signs Temp 98.8 F 11/29/18 07:28 Pulse 71 11/29/18 08:04 Resp 15 11/29/18 07:28 BP 166/83 H 11/29/18 08:04 Pulse Ox 94 L 11/29/18 07:28 Weight - Most Recent: 238 lb 6.4 oz I&O - Last 24 hours: Intake & Output 11/28/18 11/29/18 11/29/18 22:59 06:59 14:59 Intake Total 1650 2679 Output Total 700 1250 Balance 950 1429 Lab Results - Last 24 hrs: Laboratory Results - last 24 hr 11/29/18 11/29/18 Range/Units 04:50 04:50 WBC 7.34 (3.98-10.04) K/mm3 RBC 3.52 L (3.98-5.22) M/mm3 Hgb 10.4 L (11.2-15.7) gm/L Hct 31.9 L (34.1-44.9) % MCV 90.6 (79.4-94.8) fl MCH 29.5 (25.6-32.2) pg MCHC 32.6 (32.2-35.5) g/dl RDW Std Deviation 41.3 (36.4-46.3) fL Plt Count 154 L (182-369) K/mm3 MPV 11.5 (9.4-12.3) fl Neut % (Auto) 74.0 H (34.0-71.1) % Lymph % (Auto) 13.5 L (19.3-51.7) % Hawkins % (Auto) 12.1 (4.7-12.5) % Eos % (Auto) 0.1 L (0.7-5.8) Baso % (Auto) 0.0 L (0.1-1.2) % Neut # (Auto) 5.43 (1.56-6.13) K/mm3 Lymph # (Auto) 0.99 L (1.18-3.74) K/mm3 Hawkins # (Auto) 0.89 H (0.24-0.36) K/mm3 Eos # (Auto) 0.01 L (0.04-0.36) K/mm3 Baso # (Auto) 0.00 L (0.01-0.08) K/mm3 Sodium 138 (136-145) mEq/L Potassium 4.1 (3.5-5.1) mEq/L Chloride 105 (98-107) mEq/L Carbon Dioxide 25 (21-32) mEq/L Anion Gap 12.1 (5-15) BUN 20 H (7-18) mg/dL Creatinine 0.8 (0.55-1.02) mg/dL Est Cr Clr Drug Dosing 63.77 mL/min Estimated GFR (MDRD) > 60 (>60) mL/min BUN/Creatinine Ratio 25.0 H (14-18) Glucose 102 (80-115) mg/dL Calcium 9.1 (8.5-10.1) mg/dL Magnesium 1.1 L (1.8-2.4) mg/dl Med Orders - Current: Current Medications Aspirin (Ecotrin) 325 mg PO BID [facility] Last Admin: 11/29/18 08:04 Dose: 325 mg Bisacodyl (Dulcolax) 5 mg PO DAILY PRN PRN Reason: Constipation Calcium Carbonate (Calcium Carbonate/Vitamin D 600 Mg-200 Unit) 2 tab PO DAILY [facility] Last Admin: 11/29/18 08:04 Dose: 2 tab Cholecalciferol (Vitamin D3) 5,000 unit PO DAILY [facility] Last Admin: 11/28/18 09:51 Dose: 5,000 unit Cyclobenzaprine HCl (Flexeril) 10 mg PO TID PRN PRN Reason: Spasms Docusate Sodium (Colace) 100 mg PO BID [facility] Last Admin: 11/29/18 08:04 Dose: 100 mg Prochlorperazine Edisylate 5 (mg/ Sodium Chloride) 51 mls @ 150 mls/hr IV Q4H PRN PRN Reason: Nausea/Vomiting Magnesium Sulfate 4 gm/ Premix 50 mls @ 12.5 mls/hr IV ONETIME ONE Stop: 11/29/18 10:33 Last Admin: 11/29/18 06:46 Dose: 12.5 mls/hr Ketorolac Tromethamine (Toradol) 15 mg IVPUSH Q6H PRN PRN Reason: Pain Last Admin: 11/28/18 16:09 Dose: 15 mg Magnesium Hydroxide (Milk Of Magnesia) 30 ml PO BID PRN PRN Reason: Constipation Metoprolol Succinate (Toprol Xl) 25 mg PO DAILY [facility] Last Admin: 11/29/18 08:04 Dose: 25 mg Miscellaneous Information (Remove Patch) 1 ea TRDERM Q72H [facility] Morphine Sulfate (Morphine) 2 mg IVPUSH Q2H PRN PRN Reason: Breakthrough Pain Naloxone HCl (Narcan) 0.1 mg IVPUSH Q5M PRN PRN Reason: Oversedation Ondansetron HCl (Zofran) 4 mg IVPUSH Q6H PRN PRN Reason: Nausea/Vomiting Last Admin: 11/28/18 09:08 Dose: 4 mg Oxycodone/Acetaminophen (Percocet 325-5 Mg) 1 - 2 tab PO Q4H PRN PRN Reason: Pain Last Admin: 11/29/18 02:01 Dose: 2 tab Scopolamine (Transderm-Scop) 1.5 mg TRDERM Q72H [facility] Last Admin: 11/27/18 15:42 Dose: 1.5 mg Senna (Senna) 8.6 mg PO BID PRN PRN Reason: Constipation Discontinued Medications Acetaminophen (Tylenol) 975 mg PO ONETIME [facility] Stop: 11/27/18 18:00 Last Admin: 11/27/18 09:25 Dose: 975 mg Bupivacaine HCl (Marcaine 0.25%) Confirm Administered Dose 30 ml .ROUTE .STK- MED ONE Stop: 11/27/18 10:59 Last Admin: 11/27/18 13:03 Dose: 30 ml Cefazolin Sodium (Ancef) Confirm Administered Dose 2 gm .ROUTE .STK-MED ONE Stop: 11/27/18 08:19 Last Admin: 11/27/18 13:01 Dose: 2 gm Cefazolin Sodium (Ancef) Confirm Administered Dose 2 gm .ROUTE .STK-MED ONE Stop: 11/27/18 10:59 Morphine Sulfate 8 mg/Epinephrine HCl 0.3 mg/Cefuroxime Sodium 750 mg/Ketorolac Tromethamine 30 mg/Sodium Chloride 27.9 ml 0 mg .XX ONETIME ONE Stop: 11/27/18 07:31 Last Admin: 11/27/18 13:02 Dose: 788.3 mg Ephedrine Sulfate (Ephedrine In Ns) Confirm Administered Dose 25 mg .ROUTE .STK- MED ONE Stop: 11/27/18 12:27 Epinephrine HCl (Adrenalin) Confirm Administered Dose 1 mg .ROUTE .STK-MED ONE Stop: 11/27/18 10:12 Fentanyl (Sublimaze) Confirm Administered Dose 100 mcg .ROUTE .STK-MED ONE Stop: 11/27/18 08:19 Fentanyl (Sublimaze) 50 mcg IVPUSH Q5M PRN PRN Reason: pain Stop: 11/27/18 18:00 Haloperidol Lactate (Haldol) 1 mg IVPUSH ONETIME ONE Stop: 11/27/18 18:01 Last Admin: 11/27/18 18:16 Dose: 1 mg Lactated Ringer's (Ringers, Lactated) 1,000 mls @ 125 mls/hr IV ASDIRECTED [facility] Stop: 11/27/18 23:00 Last Admin: 11/27/18 09:20 Dose: 125 mls/hr Cefazolin Sodium/Dextrose 2 gm (/ Premix) 50 mls @ 100 mls/hr IV Q8H [facility] Stop: 11/28/18 11:29 Last Admin: 11/28/18 12:12 Dose: 100 mls/hr Lactated Ringer's (Ringers, Lactated) Confirm Administered Dose 1,000 mls @ as directed .ROUTE .STK-MED ONE Stop: 11/27/18 13:40 Sodium Chloride (Normal Saline) 500 mls @ 999 mls/hr IV .BOLUS ONE Stop: 11/27/18 18:31 Last Admin: 11/27/18 18:19 Dose: 999 mls/hr Sodium Chloride (Normal Saline) 500 mls @ 999 mls/hr IV .BOLUS ONE Stop: 11/28/18 12:07 Last Admin: 11/28/18 12:12 Dose: Not Given Sodium Chloride (Normal Saline) 1,000 mls @ 125 mls/hr IV ASDIRECTED [facility] Last Admin: 11/29/18 03:36 Dose: 125 mls/hr Prochlorperazine Edisylate 5 (mg/ Sodium Chloride) 51 mls @ 150 mls/hr IV ONETIME ONE Stop: 11/28/18 13:20 Last Admin: 11/28/18 15:54 Dose: 150 mls/hr Iodine (Iodine 2% Mild Tincture) Confirm Administered Dose 30 ml .ROUTE .STK- MED ONE Stop: 11/27/18 10:59 Last Admin: 11/27/18 12:58 Dose: 18 ml Lidocaine/Sodium Bicarbonate (Buffered Lidocaine 1% In Ns 8.4%) 0.25 ml IDERM ONETIME PRN PRN Reason: Prior to IV Start Stop: 11/27/18 18:00 Midazolam HCl (Versed 1 Mg/Ml) Confirm Administered Dose 2 mg .ROUTE .STK-MED ONE Stop: 11/27/18 08:19 Ondansetron HCl (Zofran) Confirm Administered Dose 4 mg .ROUTE .STK-MED ONE Stop: 11/27/18 08:19 Oxycodone HCl (Oxycontin) 10 mg PO ONETIME [facility] Stop: 11/27/18 18:00 Last Admin: 11/27/18 09:26 Dose: 10 mg Pregabalin (Lyrica) 50 mg PO ONETIME [facility] Stop: 11/27/18 18:00 Last Admin: 11/27/18 09:25 Dose: 50 mg Propofol (Diprivan 20 Ml) Confirm Administered Dose 600 mg .ROUTE .STK-MED ONE Stop: 11/27/18 08:19 Propofol (Diprivan 20 Ml) Confirm Administered Dose 200 mg .ROUTE .STK-MED ONE Stop: 11/27/18 12:50 Ropivacaine (Naropin 0.5%) Confirm Administered Dose 30 ml .ROUTE .STK-MED ONE Stop: 11/27/18 10:12 Sodium Chloride (Saline Flush) 10 ml FLUSH ASDIRECTED PRN PRN Reason: Keep Vein Open Stop: 11/27/18 18:00 Tranexamic Acid (Cyklokapron) Confirm Administered Dose 1,000 mg .ROUTE .STK- MED ONE Stop: 11/27/18 10:59 Last Admin: 11/27/18 13:17 Dose: 1,000 mg Vancomycin HCl (Vancomycin) Confirm Administered Dose 1 gm .ROUTE .STK-MED ONE Stop: 11/27/18 10:59 Last Admin: 11/27/18 13:05 Dose: 1 gm
[2018-11-29] MEDS: Cholecalciferol (Vitamin D3) 5,000 UNIT Tab PO SCH (09:40)
--- NOTE | 2018-12-01 12:03 | OR ---
DATE OF OPERATION: 11/27/2018 SURGEON: Sean Spicer MD OPERATION PERFORMED: Right total knee arthroplasty. PREOPERATIVE DIAGNOSIS: Right knee osteoarthrosis. POSTOPERATIVE DIAGNOSIS: Right knee osteoarthrosis. ANESTHESIA: Local MAC with spinal. ANESTHESIA PROVIDER: Noris Evans. ALLERGY SPECIALIST: Phyllis Casillas PA-C, and Opal Frye LPN. ESTIMATED BLOOD LOSS: 50 mL. COMPLICATIONS: None. CONDITION: Stable. IMPLANTS: 1. Herve size 5 press-fit CR femur. 2. Saybrook size 5 press-fit universal tibial base plate. 3. Herve size 5 9 mm CS polyethylene insert. 4. Saybrook size 32 x 10 mm cemented asymmetric patella. DESCRIPTION OF PROCEDURE: The patient was identified in the preop holding area. Proper site was marked and identified by the surgeon. The patient was taken back to the operating theater. After adequate anesthesia, the patient's right lower extremity had a nonsterile tourniquet applied and it was sterilely prepped and draped in the usual sterile fashion. OR time-out was performed. The patient received 2 g IV Ancef. At this time, the right lower extremity was exsanguinated. Tourniquet was insufflated to 300 mmHg. Standard medial parapatellar incision was made. Medial parapatellar arthrotomy was created. Deep fibers of the MCL were raised and anterior fat pad was resected. At this time, attention was turned to the patella. Patella measured at 22, it was resected to a 13 for a 32 x 10 mm patella. Drill holes were then drilled and found to be in adequate position. The drill was then drilled in the distal femur and the intramedullary distal femoral cutting guide was then placed. 8 mm was resected off the distal femur and was found to be an adequate resection. Sizing guide was placed. It was found to be a size 5 press-fit CR femur that was shown on the implant record at the beginning of this dictation. The drill holes were drilled for the epicondylar axis using Whitesides line and epicondyles as reference. At this time, the 4-in-1 cutting block was placed. An anterior posterior and anterior and posterior chamfer cuts were then completed. Attention was turned to the tibia. The posterior medial lateral retractors were placed. The extramedullary tibial guide was placed. It was placed in the old footprint of the ACL. It was aligned with the center of the ankle and 0 degrees of slope, 9 mm was then resected off the unaffected side. There was found to be an acceptable reduction. At this time, posterior osteophytes were removed along with medial and lateral meniscus. A trial implant was placed with a correct sized tibia that was mentioned at the beginning of the dictation. A Saybrook size 5 9 mm CS polyethylene insert was then placed. The patient's knee was brought through range of motion. The patella was tracking centrally and was stable to varus and valgus stress. Alignment was found to be roughly at 0 degrees. The tibia was stamped and drilled in proper rotation. The universal tibial base plate was impacted in place. Next, the Herve size 5 press-fit CR femur impacted into place and the Saybrook size 5 9 mm CS polyethylene insert was placed. The patient's knee was brought into full extension. The patella was then cemented in place at this time. One liter dilute Betadine solution was irrigated through the knee along with 3 L of pulse lavage irrigation with Ancef. Periarticular injection was then completed. The patient's knee was brought through a range of motion. Once the cement had time to set up and it was found to be stable to varus valgus stress, the patella was tracking centrally with full range of motion. At this time, a #2 barbed suture was used for closure of the medial parapatellar arthrotomy. Topical tranexamic acid was placed. 2-0 Vicryl was used subcutaneously, Prineo was used for the skin. The patient tolerated the procedure well and was sent to the PACU in stable condition. LEO /[id number] CHUCK
== END 2018-11-29 11:17 | disposition home or self-care (01) | DRG 302 ==
LOC: JD.SDS 08:19 → JD.MS 08:23 → JD.SDS 11:17 → JD.MS 11:18
PROVIDERS: ADMIT Orthopaedic Surgery; ATTEND Orthopaedic Surgery
PROC: 0SRC0J9 Replacement of Right Knee Joint with Synthetic Substitute, Cemented, Open Approach (ICD-10-PCS; principal; 2018-11-27)
DX: M17.11 Unilateral primary osteoarthritis, right knee (principal); I10 Essential (primary) hypertension; M54.9 Dorsalgia, unspecified; G89.29 Other chronic pain; H54.7 Unspecified visual loss; M06.9 Rheumatoid arthritis, unspecified; N39.0 Urinary tract infection, site not specified; R11.2 Nausea with vomiting, unspecified; E83.42 Hypomagnesemia; Z88.6 Allergy status to analgesic agent; Z98.49 Cataract extraction status, unspecified eye; Z90.49 Acquired absence of other specified parts of digestive tract
CPT/HCPCS: 01402; 36415; 51798; 64450; 73560-26-RT; 73560-RT; 80048; 80053; 80076; 83735; 85025; 85027; 87641; 97110-GP; 97116-GP; 97161-GP; 97165-GO; 97535-GO; A9270-GY; C1713; C1776; J0171; J0690; J0697; J0780; J1630; J1885; J2250; J2270; J2405; J2704; J2795; J3010; J3370; J3475; J3490; J7040; J7050; J7120

== ENCOUNTER 2019-06-27 15:49 | Emergency (ER) | payer BC ==
[2019-06-27 16:06] VITALS: BP 160/81; PULSE 78
[2019-06-27] MEDS ORDERED: Ondansetron 4 MG/2 ML SDV IVPUSH ONE (16:20)
[2019-06-27] MEDS ORDERED: HYDROmorphone 0.5 MG/0.5 ML Syringe IVPUSH ONE (16:20)
--- NOTE | 2019-06-27 16:24 | EDM.PDOC ---
ED HPI GENERAL MEDICAL PROBLEM - General Chief Complaint: Abdominal Pain Stated Complaint: R SIDE ABD PAIN Time Seen by Provider: 06/27/19 16:12 Source of Information: Reports: Patient History Limitations: Reports: No Limitations - History of Present Illness INITIAL COMMENTS - FREE TEXT/NARRATIVE: Patient 63-year-old female who presents the ED today complaining of right lower quadrant abdominal pain. States it just started [place] time and has been waxing waning in intensity. Pain is worse with eating, palpation, and any type of movement. She's had a poor appetite at onset with nausea and no emesis. She does not recall any documented fevers. She's had some body aches. Denies any dysuria. She's had 3 problems today described as soft and formed with no blood or dark tarry stools present. She has her appendix still in place. She's had a total hysterectomy and also gallbladder removed. Right Lower Abdominal Pain Score (Numeric/FACES): 7 - Related Data Allergies Allergy/AdvReac Type Severity Reaction Status Date / Time aspirin AdvReac Upset Verified 06/27/19 16:03 Stomach Home Meds: Home Meds Calcium Carb/Vitamin D3/Vit K1 [Calcium + D Soft Chewable Tab] 2.5 tab PO DAILY 11/24/18 [History] Cholecalciferol (Vitamin D3) [Vitamin D3] 5,000 unit PO DAILY 11/24/18 [History] Lisinopril 10 mg PO DAILY 11/24/18 [History] Metoprolol Succinate 25 mg PO DAILY 11/24/18 [History] Spironolactone 50 mg PO DAILY 11/24/18 [History] Acetaminophen [Tylenol Extra Strength] 500 mg PO Q4H PRN #1 11/28/18 [Rx] Aspirin [Ecotrin EC] 325 mg PO BID #84 tab.ec 11/28/18 [Rx] Cyclobenzaprine [Flexeril] 10 mg PO TID PRN #40 tablet 11/28/18 [Rx] Docusate Sodium [Colace] 100 mg PO BID cap 11/28/18 [Rx] Magnesium Hydroxide [Milk of Magnesia] 30 ml PO BID PRN cup 11/28/18 [Rx] Ondansetron HCl [Zofran] 4 mg PO Q6HR PRN 11/29/18 [History] Past Medical History HEENT History: Reports: Cataract, Impaired Vision, Other (See Below) Other HEENT History: wears eyeglasses, states has top/botom dentures. Cardiovascular History: Reports: Hypertension Respiratory History: Reports: None Gastrointestinal History: Reports: None, Other (See Below) Other Gastrointestinal History: c/o "I as[place] dean." Genitourinary History: Reports: UTI, Recurrent MICROBIOLOGY ANALYST History: Reports: None Musculoskeletal History: Reports: Arthritis, Back Pain, Chronic, Fracture, RA Other Musculoskeletal History: Arthritis Neurological History: Reports: None Psychiatric History: Reports: None Endocrine/Metabolic History: Reports: None Hematologic History: Reports: None Immunologic History: Reports: None Oncologic (Cancer) History: Reports: None Dermatologic History: Reports: None - Infectious Disease History Infectious Disease History: Reports: Chicken Pox - Past Surgical History Head Surgeries/Procedures: Reports: None HEENT Surgical History: Reports: Cataract Surgery Cardiovascular Surgical History: Reports: None Respiratory Surgical History: Reports: None GI Surgical History: Reports: Cholecystectomy Female Surgical History: Reports: None Other Female Surgeries/Procedures: Partial Hysterectomy Endocrine Surgical History: Reports: None Neurological Surgical History: Reports: Lumbar Spine Oncologic Surgical History: Reports: None Dermatological Surgical History: Reports: None Social & Family History - Family History Family Medical History: Noncontributory Musculoskeletal: Reports: Arthritis - Tobacco Use Smoking Status *Q: Never Smoker - Caffeine Use Caffeine Use: Reports: None Other Caffeine Use: Diet soda 2 cans/day - Recreational Drug Use Recreational Drug Use: No ED ROS GENERAL - Review of Systems Review Of Systems: Comprehensive ROS is negative, except as noted in HPI. ED EXAM, GI/ABD - Physical Exam Exam: See Below Exam Limited By: No Limitations General Appearance: Alert, WD/WN, No Apparent Distress Ears: Hearing Grossly Normal Nose: Normal Inspection Throat/Mouth: Normal Inspection, Normal Oropharynx, Normal Voice, No Airway Compromise Head: Atraumatic, Normocephalic Neck: Normal Inspection, Supple Respiratory/Chest: No Respiratory Distress, Lungs Clear, Normal Breath Sounds, No Accessory Muscle Use, Chest Non-Tender Cardiovascular: Normal Peripheral Pulses, Regular Rate, Rhythm, No Murmur GI/Abdominal Exam: Normal Bowel Sounds, Soft, No Organomegaly, No Distention, Rebound, Tender (Along McBurney's point.). No: Hernia (No Obvious) Back Exam: Normal Inspection, Full Range of Motion. No: CVA Tenderness (L), CVA Tenderness (R) Extremities: Normal Inspection Neurological: Alert, Oriented, CN II-XII Intact, Normal Cognition, No Motor/ Sensory Deficits Psychiatric: Normal Affect, Normal Mood Skin Exam: Warm, Dry, Intact, Normal Color Course - Vital Signs Last Recorded V/S: Last Vital Signs Temp 98.1 F 06/27/19 16:03 Pulse 78 06/27/19 16:03 Resp 18 06/27/19 16:03 BP 160/81 H 06/27/19 16:03 Pulse Ox 97 06/27/19 16:03 - Orders/Labs/Meds Orders: Active Orders 24 hr Category Date Time Status Peripheral IV Care [RC] . DIRECTED Care 06/27/19 16:20 Active CULTURE URINE [RM] Stat Lab 06/27/19 16:45 Received Sodium Chloride 0.9% [Normal Saline] 1,000 ml Med 06/27/19 16:30 Active IV ASDIRECTED Sodium Chloride 0.9% [Saline Flush] Med 06/27/19 16:20 Active 10 ml FLUSH ASDIRECTED PRN Peripheral IV Insertion Adult [OM.PC] Routine Oth 06/27/19 16:20 Ordered Medication Orders Sodium Chloride (Normal Saline) 1,000 mls @ 150 mls/hr IV ASDIRECTED BRODY Last Admin: 06/27/19 16:35 Dose: 150 mls/hr Sodium Chloride (Saline Flush) 10 ml FLUSH ASDIRECTED PRN PRN Reason: Keep Vein Open Last Admin: 06/27/19 18:05 Dose: 10 ml Admin: 06/27/19 16:39 Dose: 10 ml Labs: Laboratory Tests 06/27/19 06/27/19 06/27/19 Range/Units 16:37 16:37 16:37 WBC 7.83 (3.98-10.04) K/mm3 RBC 4.19 (3.98-5.22) M/mm3 Hgb 12.4 D (11.2-15.7) gm/dl Hct 37.8 (34.1-44.9) % MCV 90.2 (79.4-94.8) fl MCH 29.6 (25.6-32.2) pg MCHC 32.8 (32.2-35.5) g/dl RDW Std Deviation 43.8 (36.4-46.3) fL Plt Count 233 D (182-369) K/mm3 MPV 10.6 (9.4-12.3) fl Neutrophils % (Manual) 72 H (40-60) % Band Neutrophils % 0 (0-10) % Lymphocytes % (Manual) 22 (20-40) % Atypical Lymphs % 0 % Monocytes % (Manual) 6 (2-10) % Eosinophils % (Manual) 0 L (0.7-5.8) % Basophils % (Manual) 0 L (0.1-1.2) Platelet Estimate Adequate RBC Morph Comment Normal PT 10.3 (9.7-12.0) SECONDS INR 0.94 APTT 27 (22-31) SECONDS Sodium 139 (136-145) mEq/L Potassium 3.8 (3.5-5.1) mEq/L Chloride 103 (98-107) mEq/L Carbon Dioxide 26 (21-32) mEq/L Anion Gap 13.8 (5-15) BUN 27 H (7-18) mg/dL Creatinine 0.9 (0.55-1.02) mg/dL Est Cr Clr Drug Dosing 56.68 mL/min Estimated GFR (MDRD) > 60 (>60) mL/min BUN/Creatinine Ratio 30.0 H (14-18) Glucose 91 (80-115) mg/dL Calcium 9.6 (8.5-10.1) mg/dL Total Bilirubin 0.4 (0.2-1.0) mg/dL AST 17 (15-37) U/L ALT 28 (14-59) U/L Alkaline Phosphatase 89 (46-116) U/L C-Reactive Protein 0.5 (<1.0) mg/dL Total Protein 7.2 (6.4-8.2) g/dl Albumin 3.8 (3.4-5.0) g/dl Globulin 3.4 gm/dL Albumin/Globulin Ratio 1.1 (1-2) Urine Color (Yellow) Urine Appearance (Clear) Urine pH (5.0-8.0) Ur Specific [place] (1.005-1.030) Urine Protein (Negative) Urine Glucose (UA) (Negative) Urine Ketones (Negative) Urine Occult Blood (Negative) Urine Nitrite (Negative) Urine Bilirubin (Negative) Urine Urobilinogen (0.2-1.0) Ur Leukocyte Esterase (Negative) Urine RBC (0-5) /hpf Urine WBC (0-5) /hpf Ur Squamous Epith Cells (0-5) /hpf Urine Bacteria (FEW) /hpf Urine Mucus (FEW) /hpf 06/27/19 Range/Units 16:45 WBC (3.98-10.04) K/mm3 RBC (3.98-5.22) M/mm3 Hgb (11.2-15.7) gm/dl Hct (34.1-44.9) % MCV (79.4-94.8) fl MCH (25.6-32.2) pg MCHC (32.2-35.5) g/dl RDW Std Deviation (36.4-46.3) fL Plt Count (182-369) K/mm3 MPV (9.4-12.3) fl Neutrophils % (Manual) (40-60) % Band Neutrophils % (0-10) % Lymphocytes % (Manual) (20-40) % Atypical Lymphs % % Monocytes % (Manual) (2-10) % Eosinophils % (Manual) (0.7-5.8) % Basophils % (Manual) (0.1-1.2) Platelet Estimate RBC Morph Comment PT (9.7-12.0) SECONDS INR APTT (22-31) SECONDS Sodium (136-145) mEq/L Potassium (3.5-5.1) mEq/L Chloride (98-107) mEq/L Carbon Dioxide (21-32) mEq/L Anion Gap (5-15) BUN (7-18) mg/dL Creatinine (0.55-1.02) mg/dL Est Cr Clr Drug Dosing mL/min Estimated GFR (MDRD) (>60) mL/min BUN/Creatinine Ratio (14-18) Glucose (80-115) mg/dL Calcium (8.5-10.1) mg/dL Total Bilirubin (0.2-1.0) mg/dL AST (15-37) U/L ALT (14-59) U/L Alkaline Phosphatase (46-116) U/L C-Reactive Protein (<1.0) mg/dL Total Protein (6.4-8.2) g/dl Albumin (3.4-5.0) g/dl Globulin gm/dL Albumin/Globulin Ratio (1-2) Urine Color Yellow (Yellow) Urine Appearance Clear (Clear) Urine pH 6.0 (5.0-8.0) Ur Specific [place] 1.025 (1.005-1.030) Urine Protein Negative (Negative) Urine Glucose (UA) Negative (Negative) Urine Ketones Negative (Negative) Urine Occult Blood Negative (Negative) Urine Nitrite Negative (Negative) Urine Bilirubin Negative (Negative) Urine Urobilinogen 0.2 (0.2-1.0) Ur Leukocyte Esterase 1+ H (Negative) Urine RBC 0-5 (0-5) /hpf Urine WBC 5-10 H (0-5) /hpf Ur Squamous Epith Cells 5-10 H (0-5) /hpf Urine Bacteria Few (FEW) /hpf Urine Mucus Few (FEW) /hpf Meds: Medications Generic Name Dose Route Start Last Admin Trade Name Tan PRN Reason Stop Dose Admin Sodium Chloride 1,000 mls @ 150 mls/hr 06/27/19 16:30 06/27/19 16:35 Normal Saline IV 150 mls/hr ASDIRECTED BRODY Administration Sodium Chloride 10 ml 06/27/19 16:20 06/27/19 18:05 Saline Flush FLUSH 10 ml ASDIRECTED PRN Administration Keep Vein Open Discontinued Medications Generic Name Dose Route Start Last Admin Trade Name Tan PRN Reason Stop Dose Admin Diatrizoate Meglum/Diatrizoate Sod 90 ml 06/27/19 17:55 06/27/19 18:05 Gastrografin 37% PO 06/27/19 17:56 90 ml ONETIME ONE Administration Hydromorphone HCl 0.5 mg 06/27/19 16:20 06/27/19 16:39 Dilaudid IVPUSH 06/27/19 16:21 0.5 mg ONETIME ONE Administration Iopamidol 100 ml 06/27/19 17:55 06/27/19 18:05 Isovue-300 (61%) IVPUSH 06/27/19 17:56 100 ml ONETIME ONE Administration Ondansetron HCl 4 mg 06/27/19 16:20 06/27/19 16:39 Zofran IVPUSH 06/27/19 16:21 4 mg ONETIME ONE Administration - Re-Assessments/Exams Free Text/Narrative Re-Assessment/Exam: On initial exam blood pressure is 160/81, temperature is 98.1, heart rate 78, O2 sats are 97% on room air. Patient's complained of some flulike symptoms with decrease in appetite, increasing pain with palpation, movement, and also with eating. Pain is localized to the right lower quadrant worse with palpation. She does have her appendix in place. There has been no vomiting. Denies any diarrhea. She has been normal bowel movements with no blood or dark tarry stools present. IV established with normal saline, Dilaudid, and Zofran. Initial labs and studies include: CBC, chem 14, CRP, crisis, urinalysis, and also CT of the abdomen and pelvis with oral and IV contrast. This is rule out appendicitis. Labs reviewed: CBC 7.3, hemoglobin 12.4, platelet count 233, sodium 139, potassium 3.8, cr 0.9, CRP 0.5. UA 1+ leukocyte Estrace, urine wbc's 5-10, squamous epithelial cells 5-10. Appears contaminated. 06/27/19 18:48 CT abdomen and pelvis impression: Intrahepatic and extrahepatic biliary duct dilatation. This is most likely residual from prior cholecystectomy. Other findings bleed to be incidental as noted above. Nothing acute is appreciated on CT study of the abdomen and pelvis. Discuss results of labs and also CT study with the patient. She has no pain at this time. Vital signs are stable. She is ready be discharged home. Return precautions discussed with the patient. Is unclear at this point what may be causing the discomfort. The CT also noted a small umbilical fat-containing hernia. I discussed this with the patient as well. She will follow-up with her PCP this week. She'll return back to the ED if she develops any new or worsening symptoms. Departure - Departure Time of Disposition: 18:49 Disposition: Home, Self-Care 01 Condition: Good Clinical Impression: Right lower quadrant abdominal pain Umbilical hernia Qualifiers: Obstruction and gangrene presence: without obstruction or gangrene Qualified Code(s): K42.9 - Umbilical hernia without obstruction or gangrene - Discharge Information Instructions: Abdominal Pain, Adult Referrals: Maryam Olivia MD [Primary Care Provider] - Forms: ED Department Discharge Additional Instructions: As discussed CT of the abdomen and pelvis did not reveal any acute findings. He did have a small umbilical hernia with fat within it. With that being said will have you take MiraLAX one capful every day for the next 6 weeks. Push the fluids. Increase fiber in diet. Please follow up with PCP and of this week or first part of next week if symptoms persist. Return to the ED if he developed any new or worsening symptoms. It is not completely clear what may be causing your discomfort. Sepsis Event Note - Evaluation Sepsis Screening Result: No Definite Risk - Focused Exam Vital Signs: Vital Signs Temp Pulse Resp BP Pulse Ox 06/27/19 16:03 98.1 F 78 18 160/81 H 97 Date Exam was Performed: 06/27/19 Time Exam was Performed: 18:48 - My Orders Last 24 Hours: My Active Orders 06/27/19 16:20 Peripheral IV Care [RC] . DIRECTED Sodium Chloride 0.9% [Saline Flush] 10 ml FLUSH ASDIRECTED PRN Peripheral IV Insertion Adult [OM.PC] Routine 06/27/19 16:30 Sodium Chloride 0.9% [Normal Saline] 1,000 ml IV ASDIRECTED 06/27/19 16:45 CULTURE URINE [RM] Stat - Assessment/Plan Last 24 Hours: My Active Orders 06/27/19 16:20 Peripheral IV Care [RC] . DIRECTED Sodium Chloride 0.9% [Saline Flush] 10 ml FLUSH ASDIRECTED PRN Peripheral IV Insertion Adult [OM.PC] Routine 06/27/19 16:30 Sodium Chloride 0.9% [Normal Saline] 1,000 ml IV ASDIRECTED 06/27/19 16:45 CULTURE URINE [RM] Stat
[2019-06-27] MEDS ORDERED: Sodium Chloride 0.9% 1,000 ML IV SCH (16:30)
[2019-06-27] MEDS: Sodium Chloride 0.9% 10 ML Syringe FLUSH PRN ×2 (16:39→18:05)
[2019-06-27] MEDS ORDERED: Iopamidol 612 MG/ML 100 ML Bottle IVPUSH ONE (17:55)
[2019-06-27] MEDS ORDERED: Diatrizoate Meglumine/Diatrizoate Sodium 37% 120 ML Bottle PO ONE (17:55)
--- NOTE | 2019-06-27 18:30 | CT ---
CT abdomen and pelvis Technique: Multiple axial sections were obtained from above the dome of the diaphragm inferiorly through the pubic symphysis. Intravenous and oral contrast was utilized. Delayed images were obtained through the bladder. Comparison: Prior CT abdomen and pelvis study of 04/24/18. Findings: Visualized lung bases show nothing acute. Liver contains no focal abnormality. There is mild intrahepatic and extrahepatic biliary duct dilatation. Common bile duct is mildly dilated at 1.8 cm. These findings are felt to be fairly stable from prior exam and presumably are due to change from previous cholecystectomy. Spleen appears within normal limits. Pancreas appears within normal limits. Small cortical cysts are noted within the kidneys. Small nonobstructing stone is change is noted within the lower left kidney measuring 3-4 mm. Aorta shows no aneurysm. No retroperitoneal adenopathy or mesenteric abnormalities are seen. Small fat-containing umbilical hernia is noted. No pelvic mass or adenopathy is seen. Bladder calcification is noted measuring 1.0 cm compatible with bladder calculus. Appendix partially visualized and is felt to be within normal limits. No free fluid or inflammatory changes seen. Mild diverticuli are seen within the descending and sigmoid colon as well as within other portions of the colon without inflammatory change of diverticulitis. Bone window settings were reviewed which shows scattered degenerative change within the spine. Impression: 1. Intrahepatic and extrahepatic biliary duct dilatation. This is most likely residual from prior cholecystectomy. 2. Other findings believed to be incidental as noted above. 3. Nothing acute is appreciated on CT study of the abdomen and pelvis. Diagnostic code #2 This report was dictated in [place] Standard Time
== END 2019-06-27 19:07 | disposition home or self-care (01) ==
LOC: JD.ED 15:49
DX: K42.9 Umbilical hernia without obstruction or gangrene (principal); I10 Essential (primary) hypertension; Z79.899 Other long term (current) drug therapy; Z88.6 Allergy status to analgesic agent
CPT/HCPCS: 36415; 74177; 80053; 81001; 85007; 85027; 85610; 85730; 86140; 87086; 96361; 96374; 96375; 99284; J1170; J2405; J7030; Q9963; Q9967

== ENCOUNTER → 2021-04-13 | Day surgery (SDC) | payer BC ==
[~2021-04-13] MED LIST changes: -Acetaminophen 325 MG Tab PO SCH; -Bisacodyl 5 MG Tab PO PRN; -Cyclobenzaprine 10 MG Tab PO PRN; -Ketorolac 15 MG/ML SDV IVPUSH PRN; +Lidocaine 1% 6 ML ONE; -Magnesium Hydroxide 400 MG/5 ML Susp 30 ML Cup PO PRN; -Morphine 2 MG/ML Syringe IVPUSH PRN; -Morphine 8 MG, EPINEPHrine 0.3 MG, Cefuroxime 750 MG, Ketorolac 30 MG, Sodium Chloride ... ONE; -Naloxone 0.4 MG/ML SDV IVPUSH PRN; -Ondansetron 4 MG/2 ML SDV ONE; -Pregabalin 25 MG Cap PO SCH; -Sennosides 8.6 MG Tab PO PRN; -ceFAZolin 1 GM Vial ONE; -fentaNYL 100 MCG/2 ML SDV ONE; -oxyCODONE ER 10 MG TAB.ER PO SCH
--- NOTE | 2021-04-13 07:19 | PCM.PREANE ---
Preanesthetic Assessment - Anesthesia/Transfusion/Family Hx Anesthesia History: Prior Anesthesia Without Reaction Family History of Anesthesia Reaction: No Transfusion History: Prior Transfusion Without Reaction - Review of Systems General: No Symptoms Pulmonary: No Symptoms Cardiovascular: No Symptoms Gastrointestinal: No Symptoms Neurological: No Symptoms Other: Reports: None - Physical Assessment NPO Status Date: 04/12/21 NPO Status Time: 20:00 ASA Class: 3 Mental Status: Alert & Oriented x3 Dentition: Reports: Dentures (upper), Missing Tooth/Teeth (bottom teeth missing) Thyro-Mental Finger Breadths: 3 Mouth Opening Finger Breadths: 3 ROM/Head Extension: Full Lungs: Clear to Auscultation, Normal Respiratory Effort Cardiovascular: Regular Rate, Regular Rhythm - Allergies Allergies/Adverse Reactions: Allergies Allergy/AdvReac Type Severity Reaction Status Date / Time aspirin AdvReac Upset Verified 04/12/21 17:09 Stomach - Anesthesia Plan Beta Javier: Metoprolol Med Last Dose Date: 11/11/20 Med Last Dose Time: 05:30 - Acknowledgements Anesthesia Type Planned: MAC Pt an Appropriate Candidate for the Planned Anesthesia: Yes Alternatives and Risks of Anesthesia Discussed w Pt/Guardian: Yes PreAnesthesia Questionnaire HEENT History: Reports: Cataract, Impaired Vision, Other (See Below) Other HEENT History: wears eyeglasses, states has top/botom dentures. Cardiovascular History: Reports: Hypertension Respiratory History: Reports: None Gastrointestinal History: Reports: GERD, Other (See Below) Other Gastrointestinal History: c/o "I belch alot." Genitourinary History: Reports: Renal Calculus, UTI, Recurrent LINE PRODUCTION COOK History: Reports: None Musculoskeletal History: Reports: Arthritis, Back Pain, Chronic, Fracture, RA Other Musculoskeletal History: Arthritis Neurological History: Reports: None Psychiatric History: Reports: None Endocrine/Metabolic History: Reports: None Hematologic History: Reports: None Immunologic History: Reports: None Oncologic (Cancer) History: Reports: None Dermatologic History: Reports: None - Infectious Disease History Infectious Disease History: Reports: Chicken Pox - Past Surgical History Head Surgeries/Procedures: Reports: None HEENT Surgical History: Reports: Cataract Surgery, Tonsillectomy Cardiovascular Surgical History: Reports: None Respiratory Surgical History: Reports: None GI Surgical History: Reports: Cholecystectomy Female Surgical History: Reports: Hysterectomy, Tubal Ligation Other Female Surgeries/Procedures: Partial Hysterectomy Male Surgical History: Reports: None Endocrine Surgical History: Reports: None Neurological Surgical History: Reports: Lumbar Spine Musculoskeletal Surgical History: Reports: Knee Replacement, Shoulder Surgery Oncologic Surgical History: Reports: None Dermatological Surgical History: Reports: None - SUBSTANCE USE Tobacco Use Status *Q: Never Tobacco User Recreational Drug Use History: No - HOME MEDS Home Medications: Home Meds Cholecalciferol (Vitamin D3) [Vitamin D3] 5,000 unit PO DAILY 11/24/18 [History] Lisinopril 10 mg PO DAILY 11/24/18 [History] Metoprolol Succinate 25 mg PO DAILY 11/24/18 [History] Acetaminophen [Tylenol Extra Strength] 500 mg PO Q4H PRN #1 11/28/18 [Rx] Meloxicam 7.5 mg PO DAILY 04/12/21 [History] Pantoprazole Sodium [Protonix] 40 mg PO DAILY 04/12/21 [History] Spironolactone [Aldactone] 50 mg PO DAILY 04/12/21 [History] Triamcinolone Acetonide 1 dose TOP BID PRN 04/12/21 [History] - CURRENT (IN HOUSE) MEDS Current Meds: Current Medications Lactated Ringer's (Ringers, Lactated) 1,000 mls @ 125 mls/hr IV ASDIRECTED BRODY Stop: 04/13/21 23:00 Lidocaine/Sodium Bicarbonate (Lidocaine 1%/Sod Bicarbonate In Ns 8.4% 1 Ml Syringe) 0.25 ml IDERM ONETIME PRN PRN Reason: Prior to IV Start Stop: 04/13/21 18:00 Sodium Chloride (Sodium Chloride 0.9% 10 Ml Syringe) 10 ml FLUSH ASDIRECTED PRN PRN Reason: Keep Vein Open Stop: 04/13/21 18:00
--- NOTE | 2021-04-13 09:17 | PCM48HPAN ---
Post Anesthesia Note - EVALUATION WITHIN 48HRS OF ANESTHETIC Vital Signs in Normal Range: Yes Patient Participated in Evaluation: Yes Respiratory Function Stable: Yes Airway Patent: Yes Cardiovascular Function Stable: Yes Hydration Status Stable: Yes Pain Control Satisfactory: Yes Nausea and Vomiting Control Satisfactory: Yes Mental Status Recovered: Yes Vital Signs: Last Vital Signs Temp 97.3 F 04/13/21 07:05 Pulse 78 04/13/21 07:05 Resp 16 04/13/21 07:05 BP 144/71 H 04/13/21 07:05 Pulse Ox 96 04/13/21 07:05 Vital signs at 0910 BP: 109/61 HR 55 RR 10 99.3 94% RA
--- NOTE | 2021-04-13 11:49 | PROC ---
DATE OF OPERATION: 04/13/2021 SURGEON: Robbin Fields MD PREOPERATIVE DIAGNOSES: 1. Positive FIT test. 2. Long history of gastroesophageal reflux disease. POSTOPERATIVE DIAGNOSES: 1. Hiatal hernia. 2. Gastritis. 3. Small nonobstructing Schatzki's ring. 4. Scattered diverticulosis. 5. Small hemorrhoids. 6. Polyps. OPERATION PERFORMED: 1. Esophagogastroduodenoscopy. 2. Colonoscopy. ANESTHESIA: Monitored anesthesia care. COMPLICATIONS: None. INDICATIONS AND CONSENT: The patient is a 65-year-old female who underwent a colonic screening with FIT test which turned out to be positive. The patient does not have any other colonic symptoms. She is otherwise doing fine. Therefore, she was referred for colonoscopy. The patient also has long history of gastroesophageal reflux disease and reflux symptoms. Therefore, EGD was also recommended. The patient was seen, evaluated. Risks, benefits, and alternatives for the procedures were discussed and informed consent was obtained. DETAILS OF PROCEDURE: The patient was taken to the procedure room, placed in left lateral decubitus position. Monitored anesthesia care was induced. Bite-block was placed. Time- out was performed and then we began the procedure by starting with the EGD. The scope was inserted into the mouth, taken all the way to the second portion of duodenum. Duodenum was normal. Stomach: In the antrum, there seemed to be mild gastritis manifested by congestion. Biopsies were taken with cold forceps here for histologic exam. EBL was minimal. In the gastric body, there were no abnormalities. Retroflexion revealed a medium-sized esophageal hernia, but the fundus was normal. There was some bile fluid within the fundus of the stomach. On taking the scope up to the GE junction, the Z-line was at 37 cm from the incisors. Right above the GE junction, there was a nonobstructing Schatzki's ring. This area was widely patent. The Z-line was regular. The distal, mid, and proximal esophagus were all normal. At this point, the air was suctioned from the stomach and this procedure was concluded. We paid attention to the colonoscopy. Perianal exam revealed some skin tags, but no other abnormality. Digital rectal exam was normal. We placed a scope and took it all the way to the cecum. Appendiceal orifice and ileocecal valve were photographed. In the cecum, there was a small 2 mm sessile polyp that was removed by Jordyn forceps. EBL was minimal. Then, there was another 2 mm polyp in the rectum that was also removed with the Jumbo forceps, EBL being minimal. The rest of the colon revealed scattered diverticula from the ascending colon, transverse, and mostly in the sigmoid colon. These were small and medium in size. The rectum was normal. On retroflexion, there were grade 2 internal hemorrhoids, but no other abnormalities. Air was suctioned out from the colon and the scope was concluded. Prep was good. Therefore, in summary, this exam revealed 2 small polyps in the colon, hiatal hernia, Schatzki's ring as well as mild gastritis. The patient will be allowed to return home and follow up in clinic in 2 weeks for pathology discussion. LEO /[id number] MTDD
[2021-04-13 14:05] VITALS: BP 117/58; PULSE 61
== END | disposition home or self-care (01) ==
LOC: JD.SDS 06:57
PROVIDERS: ATTEND Surgery
DX: K62.1 Rectal polyp (principal); K29.50 Unspecified chronic gastritis without bleeding; K31.89 Other diseases of stomach and duodenum; K22.2 Esophageal obstruction; K44.9 Diaphragmatic hernia without obstruction or gangrene; K57.30 Diverticulosis of large intestine without perforation or abscess without bleeding; K64.9 Unspecified hemorrhoids; K64.4 Residual hemorrhoidal skin tags; K64.1 Second degree hemorrhoids; I10 Essential (primary) hypertension; M06.9 Rheumatoid arthritis, unspecified; Z90.49 Acquired absence of other specified parts of digestive tract; Z98.890 Other specified postprocedural states; Z79.899 Other long term (current) drug therapy; Z88.8 Allergy status to other drugs, medicaments and biological substances; Z20.822 Contact with and (suspected) exposure to COVID-19
CPT/HCPCS: 43239; 45380; J2250; J2704; J7120; 00813

== ENCOUNTER 2022-09-08 19:50 | Emergency (ER) | payer BC ==
[2022-09-08 20:04] VITALS: BP 149/77; PULSE 67
[2022-09-08] MEDS ORDERED: Sodium Chloride 0.9% 10 ML Syringe FLUSH PRN (20:06)
[2022-09-08] MEDS ORDERED: Ondansetron 4 MG/2 ML SDV IVPUSH ONE (20:19)
[2022-09-08] MEDS ORDERED: HYDROmorphone 0.5 MG/0.5 ML Syringe IVPUSH ONE (20:19)
[2022-09-08] MEDS ORDERED: Sodium Chloride 0.9% 1,000 ML IV STA (20:19)
[2022-09-08 20:55] LABS: ESTIMATED GFR 56 mL/min (>60)
[2022-09-08] MEDS ORDERED: Acetaminophen/HYDROcodone 325-5 MG Tab PO ONE (21:21)
[2022-09-08] MEDS ORDERED: Cefdinir 300 MG Cap PO ONE (21:21)
== END 2022-09-08 21:58 | disposition home or self-care (01) ==
LOC: JD.ED 19:50
DX: N39.0 Urinary tract infection, site not specified (principal); I10 Essential (primary) hypertension; K21.9 Gastro-esophageal reflux disease without esophagitis; Z88.8 Allergy status to other drugs, medicaments and biological substances; Z79.899 Other long term (current) drug therapy
CPT/HCPCS: 36415; 74176; 80053; 81001; 85025; 86140; 87086; 99284; A9270; J1170; J2405; J3490; J7030

== ENCOUNTER 2024-03-23 15:51 | Emergency (ER) | payer MEDICARE, OTHER ==
[2024-03-23 17:01] LABS: APPEARANCE,URINE CLEAR (Clear); BILIRUBIN,URINE NEGATIVE (Negative); COLOR,URINE YELLOW (Yellow); GLUCOSE,URINE NEGATIVE (Negative); KETONES,URINE NEGATIVE (Negative); LEUKOCYTE ESTERASE,URINE NEGATIVE (Negative); NITRITE,URINE NEGATIVE (Negative); OCCULT BLOOD,URINE NEGATIVE (Negative); PROTEIN,URINE NEGATIVE (Negative); UROBILINOGEN,URINE 0.2 (0.2-1.0)
[2024-03-23 17:11] LABS: BACTERIA,URINE FEW /hpf (FEW); MUCUS,URINE FEW /hpf (FEW); RBC,URINE 0-5 /hpf (0-5); SQUAMOUS EPITHELIAL CELLS,UR 0-5 /hpf (0-5); WBC,URINE 0-5 /hpf (0-5)
[2024-03-23 17:15] LABS: BASOPHILS PERCENT AUTO 0.1 % (0.0-1.0); EOSINOPHILS ABSOLUTE AUTO 0.1 K/mm3 (0.0-0.4); EOSINOPHILS PERCENT AUTO 1.2 % (0.0-6.0); HEMATOCRIT 39.7 % (37.0-47.0); HEMOGLOBIN 13.1 gm/dl (12.0-16.0); IMMATURE GRAN ABSOLUTE AUTO 0.03 K/mm3 (0.00-0.05); IMMATURE GRAN PERCENT AUTO 0.4 % (0.0-0.4); LYMPHOCYTES ABSOLUTE AUTO 2.5 K/mm3 (1.0-4.8); LYMPHOCYTES PERCENT AUTO 36.1 % (24.0-44.0); MEAN CORPUSCULAR HEMOGLOBIN 29.9 pg (28.0-32.0); MEAN CORPUSCULAR VOLUME 90.6 fl (83.0-99.0); MEAN PLATELET VOLUME 10.2 fl (9.4-12.3); MONOCYTES ABSOLUTE AUTO 0.6 K/mm3 (0.0-0.8); MONOCYTES PERCENT AUTO 7.9 % (0.0-8.0); NEUTROPHILS ABSOLUTE AUTO 3.8 K/mm3 (1.8-7.7); NEUTROPHILS PERCENT AUTO 54.3 % (41.0-71.0); PLATELET COUNT,PLT 227 K/mm3 (150-400); RED BLOOD CELL COUNT 4.38 M/mm3 (4.10-5.30); WHITE BLOOD CELL COUNT,WBC 6.93 K/mm3 (3.9-11.3)
[2024-03-23] MEDS: Iopamidol 612 MG/ML 100 ML Bottle IVPUSH ONE (17:20)
[2024-03-23 17:36] LABS: A/G RATIO 1.1 (1-2); ALBUMIN 3.8 g/dl (3.4-5.0); BILIRUBIN TOTAL 0.4 mg/dL (0.2-1.0); CALCIUM 9.9 mg/dL (8.5-10.1); EST CRCL DRUG DOSING (CG) 47.79 mL/min; PROTEIN TOTAL,TP 7.4 g/dl (6.4-8.2)
[2024-03-23] MEDS: HYDROmorphone 0.5 MG/0.5 ML Syringe IVPUSH ONE (17:37)
[2024-03-23] MEDS: Ondansetron 4 MG/2 ML SDV IVPUSH ONE (17:37)
[2024-03-23] MEDS: Sodium Chloride 0.9% 1,000 ML IV STA (17:38)
[2024-03-23] MEDS: Sodium Chloride 0.9% 10 ML Syringe FLUSH PRN (17:38)
[2024-03-23 19:19] VITALS: BP 152/82; PULSE 78
== END 2024-03-23 18:55 | disposition home or self-care (01) ==
LOC: JD.ED 15:51
DX: A08.4 Viral intestinal infection, unspecified (principal); K44.9 Diaphragmatic hernia without obstruction or gangrene; I10 Essential (primary) hypertension; K21.9 Gastro-esophageal reflux disease without esophagitis; Z79.899 Other long term (current) drug therapy; Z88.8 Allergy status to other drugs, medicaments and biological substances
CPT/HCPCS: 36415; 74177; 80053; 81001; 83690; 85025; 96361; 96374; 96375; 99284; J1170; J2405; J3490; J7030; Q9967